=== PATIENT | female | born 1950 | race Caucasian/White ===

== ENCOUNTER → 2017-11-17 | Outpatient (CLI) | payer BC, OTHER ==
[2016-05-15 16:55] VITALS: BP 144/78
--- NOTE | 2017-11-18 08:29 | RAD ---
HISTORY: Back Pain Study: 3 views of the lumbar spine Comparison: None. Findings: Normal alignment without subluxation or listhesis. Multilevel degenerative disc disease. Vertebral b aleyda heights are normal. Sacroiliac joints are unremarkable. No evidence for acute fracture can be id entified. IMPRESSION: 1. Severe multilevel degenerative disc disease. Reported By:
--- NOTE | 2017-11-18 08:31 | RAD ---
HISTORY: Neck pain Study: 6 views of the cervical spine. Comparison: None Findings: The cervical spine demonstrate normal alignment from the craniocervical junction to the level of T1. Severe multilevel degenerative disc disease. The vertebral body heights are normal. No prevertebral soft tissue swelling can be identified. The odontoid appears intact. The lateral masses of C1 align with the body of C2. IMPRESSION: 1. Severe multilevel degenerative disc disease. Reported By:
== END | disposition home or self-care (01) | DRG 552 ==
LOC: RAD 14:29
PROVIDERS: ATTEND Nurse Practitioner Family
DX: M54.2 Cervicalgia (principal); M54.5 Low back pain; M51.36 Other intervertebral disc degeneration, lumbar region
CPT/HCPCS: 72040; 72100

== ENCOUNTER 2022-03-15 14:47 | Observation (INO) ==
--- NOTE | 2022-03-15 15:22 | DR.DIZZY ---
HPI Time seen Time Seen by Provider: 03/15/22 15:22 PCP Primary Care Physician: LEONEL Complaint Chief Complaint:: HAD EGD DONE LAST WEEK, STRETECHED ESOPHAGAS, HITAL HERNIA AND ACID REFLUX. SINCE THEN SHE HAS BEEN HAVING DIARRHEA, CONSTIPATION, NO EATING OR DRINKING. GAVE HER BLOOD PRESSURE MEDS TO START COVID-19 Coronavirus risk:travel/contact w/high risk person: No Has patient experienced Coronavirus symptoms: No Source History Provided: Patient and Family Member Mode of Arrival Mode of Arrival: Wheelchair Timing Onset of Chief Complaint: 03/12/22 PMH PMH Past Medical History: Yes Past Medical History: GERD, Headaches and Hypertension Past Surgical History: Yes Surgical History: Hysterectomy and Lithotripsy Past Surgical History Comment: EGD Family History History of Family Medical Conditions: Yes Family Medical History: Hypertension Social History Do you use any recreational Drugs:: No Travel Risk Coronavirus risk:travel/contact w/high risk person: No Has patient experienced Coronavirus symptoms: No Infectious screening In the last 2 months have you had wt loss of >10#?: NO Have you had fever, night sweats or hemotysis?: No Have you traveled outside the country in the last 6 months?: No Isolation: Standard PE Vital Signs Vitals: Temperature 98.6 F Pulse Rate 86 Respiratory Rate 20 Blood Pressure [Left Arm] 134/60 Blood Pressure 128/57 O2 Sat by Pulse Oximetry 97 ROR Labs Reviewed Result Diagrams: 03/15/22 15:42 03/15/22 15:42 Laboratory: WBC 3.9 X10^3/uL (3.6-10.0) 03/15/22 15:42 RBC 3.65 X10^6/uL (3.5-5.4) 03/15/22 15:42 Hgb 11.9 g/dL (12.0-16.0) L 03/15/22 15:42 Hct 34.5 % (36.0-47.0) L 03/15/22 15:42 MCV 94.5 fL (80.0-100.0) 03/15/22 15:42 MCH 32.5 pg (27.0-34.0) 03/15/22 15:42 MCHC 34.4 g/dL (33.0-35.0) 03/15/22 15:42 RDW 13.3 % (11.6-16.5) 03/15/22 15:42 Plt Count 346 X10^3/uL (150.0-450.0) 03/15/22 15:42 Plt Count Comment Adequate (ADEQUATE) 03/15/22 15:42 MPV 6.2 fL (7.4-11.0) L 03/15/22 15:42 Neut % (Auto) 50.2 % (42.0-75.0) 03/15/22 15:42 Lymph % (Auto) 24.4 % (21.0-51.0) 03/15/22 15:42 [place] % (Auto) 15.0 % (0.0-13.0) H 03/15/22 15:42 Eos % (Auto) 7.0 % (0.9-2.9) H 03/15/22 15:42 Baso % (Auto) 3.4 % (0.2-1.0) H 03/15/22 15:42 Neut # (Auto) 2.0 x10^3/uL (2.2-4.8) L 03/15/22 15:42 Lymph # (Auto) 1.0 X10^3/uL (1.3-2.9) L 03/15/22 15:42 [place] # (Auto) 0.6 x10^3/uL (0.3-0.8) 03/15/22 15:42 Eos # (Auto) 0.3 x10^3/uL (0.0-0.2) H 03/15/22 15:42 Baso # (Auto) 0.1 X10^3/uL (0.0-0.1) 03/15/22 15:42 Absolute Nucleated RBC 0.3 /100WBC 03/15/22 15:42 Total Counted 100 03/15/22 15:42 Neutrophils % (Manual) 56 % (39-76) 03/15/22 15:42 Lymphocytes % (Manual) 25 % (13-43) 03/15/22 15:42 Monocytes % (Manual) 10 % (4-9) H 03/15/22 15:42 Eosinophils % (Manual) 9 % (0-6) H 03/15/22 15:42 Plt Morphology Comment Normal (NORMAL) 03/15/22 15:42 RBC Morphology Normal (NORMAL) 03/15/22 15:42 Sodium 140 mmol/L (136-145) 03/15/22 15:42 Corrected Sodium TNP 03/15/22 15:42 Potassium 3.9 mmol/L (3.5-5.1) 03/15/22 15:42 Chloride 106 mmol/L (98-107) 03/15/22 15:42 Carbon Dioxide 25.6 mmol/L (21-32) 03/15/22 15:42 BUN 20 mg/dL (7-18) H 03/15/22 15:42 Creatinine 0.77 mg/dL (0.55-1.02) 03/15/22 15:42 Est GFR (MDRD) Af Amer > 60 (>60) 03/15/22 15:42 Est GFR (MDRD) Non-Af > 60 (>60) 03/15/22 15:42 Glucose 82 mg/dL (65-99) 03/15/22 15:42 Calcium 8.4 mg/dL (8.5-10.1) L 03/15/22 15:42 Corrected Calcium 9.4 mg/dL (8.5-10.1) 03/15/22 15:42 Total Bilirubin 0.20 mg/dL (0.2-1.0) 03/15/22 15:42 AST 19 Units/L (15-37) 03/15/22 15:42 ALT 20 Units/L (12-78) 03/15/22 15:42 Alkaline Phosphatase 88 Units/L (46-116) 03/15/22 15:42 Total Protein 5.7 g/dL (6.4-8.2) L 03/15/22 15:42 Albumin 2.8 g/dL (3.4-5.0) L 03/15/22 15:42 Globulin 2.9 g/dL (2.5-4.5) 03/15/22 15:42 Albumin/Globulin Ratio 1.0 Ratio (1.1-2.1) L 03/15/22 15:42 Amylase 65 Units/L (25-115) 03/15/22 15:42 Lipase 176 Units/L (73-393) 03/15/22 15:42 Opioid Opioid Risk Tool Age (Nehemiah box if 16-45): No History of Preadolescent Sexual Abuse: No Total: 0 Total Score Risk Category: Low Risk Copyright: Ashutosh FRYE predicting aberrant behaviors Discharge Plan Discharge Plan Patient Disposition: 09 ADMITTED INPATIENT Condition: Stable Orders to Discharge Patient Discharge Orders: Transfer (Routine); Ordered 03/15/22 Ordered By: KATHY BETH
[2022-03-15] MEDS ORDERED: NS 1,000 ML IV 1,000 ML ONE (15:35)
[2022-03-15] MEDS ORDERED: ZOFRAN INJ 4 MG VIAL IVP ONE (15:36)
[2022-03-15] MEDS ORDERED: PEPCID 20 MG VIAL 20 MG in NS 50 ML IV 50 ML IV ONE (15:38)
[2022-03-15 15:53] LABS: EOSINOPHILS # (AUTO) 0.3 x10^3/uL (0.0-0.2); MEAN PLATELET VOLUME 6.2 fL (7.4-11.0); MONOCYTES # (AUTO) 0.6 x10^3/uL (0.3-0.8); RED CELL DISTRIBUTION WIDTH 13.3 % (11.6-16.5); WHITE BLOOD COUNT 3.9 X10^3/uL (3.6-10.0)
[2022-03-15] MEDS ORDERED: PEPCID 20 MG VIAL ONE (15:53)
[2022-03-15] MEDS ORDERED: NS 100 ML IV 100 ML ONE (15:53)
[2022-03-15] MEDS ORDERED: ZOFRAN INJ 4 MG VIAL ONE (15:53)
[2022-03-15 15:58] LABS: BASOPHILS # (AUTO) 0.1 X10^3/uL (0.0-0.1); BASOPHILS % (AUTO) 3.4 % (0.2-1.0); HEMATOCRIT 34.5 % (36.0-47.0); HEMOGLOBIN 11.9 g/dL (12.0-16.0); LYMPHOCYTES % (AUTO) 24.4 % (21.0-51.0); MEAN CORPUSCULAR HEMOGLOBIN 32.5 pg (27.0-34.0); MEAN CORPUSCULAR HGB CONC 34.4 g/dL (33.0-35.0); MEAN CORPUSCULAR VOLUME 94.5 fL (80.0-100.0); NEUTROPHILS % (AUTO) 50.2 % (42.0-75.0); RED BLOOD COUNT 3.65 X10^6/uL (3.5-5.4)
[2022-03-15] MEDS ORDERED: NS 1,000 ML IV 1,000 ML IV SCH (16:00)
[2022-03-15 16:06] LABS: ALANINE AMINOTRANSFERASE 20 Units/L (12-78); ALBUMIN 2.8 g/dL (3.4-5.0); ALKALINE PHOSPHATASE 88 Units/L (46-116); AMYLASE 65 Units/L (25-115); ASPARTATE AMINO TRANSFERASE 19 Units/L (15-37); BLOOD UREA NITROGEN 20 mg/dL (7-18); CALCIUM 8.4 mg/dL (8.5-10.1); CARBON DIOXIDE 25.6 mmol/L (21-32); CHLORIDE 106 mmol/L (98-107); COR CA(FOR HYPOALB) 9.4 mg/dL (8.5-10.1); CREATININE 0.77 mg/dL (0.55-1.02); LIPASE 176 Units/L (73-393); SODIUM 140 mmol/L (136-145); TOTAL PROTEIN 5.7 g/dL (6.4-8.2); eGFR NON BLACK RACES > 60 (>60)
[2022-03-15 16:11] LABS: PLATELET MORPHOLOGY COMMENT NORMAL (NORMAL)
[2022-03-15] MEDS ORDERED: FLEET ENEMA ADULT ONE (16:32)
[2022-03-15] MEDS ORDERED: ZOFRAN INJ 4 MG VIAL IVP PRN (19:19)
[2022-03-15] MEDS: NS 1,000 ML IV 1,000 ML IV SCH (20:59)
[2022-03-15] MEDS: MEGACE PO SCH (21:12)
[2022-03-15 21:42] VITALS: BMI 13.8
[2022-03-15 21:57] LABS: BILIRUBIN,URINE NEGATIVE (NEGATIVE); BLOOD/HEMOGLOBIN,URINE NEGATIVE (NEGATIVE); GLUCOSE, URINE NEGATIVE (NEGATIVE); KETONES,URINE 2+ (NEGATIVE); LEUKOCYTE ESTERASE ,URINE 1+ (NEGATIVE); NITRITES,URINE NEGATIVE (NEGATIVE); PROTEIN,URINE NEGATIVE (NEGATIVE); UROBILINOGEN,URINE NORMAL (NORMAL)
[2022-03-15 22:27] LABS: APPEARANCE,URINE CLEAR (CLEAR); COLOR,URINE YELLOW (YELLOW)
[2022-03-15 22:28] LABS: BACTERIA,URINE TRACE /HPF (NEGATIVE); RBC,URINE NONE SEEN /HPF (0-3); SQUAMOUS EPITHELIAL CELL,UR FEW /HPF (NEGATIVE)
[2022-03-16 04:39] LABS: ALANINE AMINOTRANSFERASE 17 Units/L (12-78); ALBUMIN 2.5 g/dL (3.4-5.0); ALKALINE PHOSPHATASE 78 Units/L (46-116); ASPARTATE AMINO TRANSFERASE 18 Units/L (15-37); BLOOD UREA NITROGEN 16 mg/dL (7-18); CALCIUM 7.9 mg/dL (8.5-10.1); CARBON DIOXIDE 25.8 mmol/L (21-32); CHLORIDE 110 mmol/L (98-107); COR CA(FOR HYPOALB) 9.1 mg/dL (8.5-10.1); CREATININE 0.63 mg/dL (0.55-1.02); SODIUM 141 mmol/L (136-145); eGFR NON BLACK RACES > 60 (>60)
[2022-03-16 04:42] LABS: BASOPHILS # (AUTO) 0.1 X10^3/uL (0.0-0.1); BASOPHILS % (AUTO) 2.2 % (0.2-1.0); EOSINOPHILS # (AUTO) 0.2 x10^3/uL (0.0-0.2); EOSINOPHILS % (AUTO) 5.6 % (0.9-2.9); HEMATOCRIT 30.2 % (36.0-47.0); HEMOGLOBIN 10.5 g/dL (12.0-16.0); LYMPHOCYTES # (AUTO) 0.9 X10^3/uL (1.3-2.9); LYMPHOCYTES % (AUTO) 23.1 % (21.0-51.0); MEAN CORPUSCULAR HEMOGLOBIN 32.7 pg (27.0-34.0); MEAN CORPUSCULAR HGB CONC 34.8 g/dL (33.0-35.0); MEAN CORPUSCULAR VOLUME 93.9 fL (80.0-100.0); MEAN PLATELET VOLUME 6.4 fL (7.4-11.0); MONOCYTES # (AUTO) 0.5 x10^3/uL (0.3-0.8); MONOCYTES % (AUTO) 13.4 % (0.0-13.0); NEUTROPHILS # (AUTO) 2.1 x10^3/uL (2.2-4.8); NEUTROPHILS % (AUTO) 55.7 % (42.0-75.0); RED BLOOD COUNT 3.21 X10^6/uL (3.5-5.4); RED CELL DISTRIBUTION WIDTH 13.5 % (11.6-16.5); WHITE BLOOD COUNT 3.8 X10^3/uL (3.6-10.0)
[2022-03-16 05:50] LABS: BASOPHILS % (MANUAL) 1 % (0-1); PLATELET MORPHOLOGY COMMENT NORMAL (NORMAL)
[2022-03-16] MEDS: MEGACE PO SCH (08:49)
[2022-03-16] MEDS: NS 1,000 ML IV 1,000 ML IV SCH (08:50)
[2022-03-16 12:04] VITALS: BP 106/51
--- NOTE | 2022-03-16 14:53 | DR.SSS ---
SHORT STAY SUMMARY Admission Date Date of Admission: 03/15/22 Discharge Date Discharge Date: 03/16/22 Admission Diagnoses Admission Diagnoses: Weakness/ Anorexia/loss of bowel function and urinary function Discharge Diagnoses Discharge Diagnoses: 1. Weakness improved 2. Anorexia 3. Loss of bowel function and urinary function secondary to what I believe was benzodiazepine intoxication. Chief Complaint Chief Complaint: My is nonfunctioning. History of Present Illness History of Present Illness: This is a 81-year-old white female who is a patient of mine. I was called by the patient's earlier in the day he reported that she has been in bed since Tuesday. He reports that through the weekend she was defecating on herself and also urinated on herself. He reported that she seemed to be out of her mind and ate very little over the weekend. I question her about her diazepam use and her she denied using any over the weekend and the said that he had a bottle she was not able to take it. She did report taking 1 hydrocodone 7.5/325 mg for a headache she had earlier in the weekend. When I saw the patient in the emergency department she was alert and awake and responded appropriately to questions. She was sitting up in the bed and seemed somewhat agitated with her as he was reporting on how little she eats at home. Past Medical History Past Medical History: Anxiety, Depression, GERD, Headaches and Hypertension Past Surgical History Surgical History: Hysterectomy and Lithotripsy Allergies Allergies Allergy/AdvReac Type Severity Reaction Status Date / Time No Known Drug Allergies Allergy Verified 12/20/18 22:41 Medications Home Medications: No Known Drug Allergies Allergy (Verified 12/20/18 22:41) CONTINUE taking the following medications donepezil 10 mg tablet tab 03/15/22 [History] famotidine 20 mg tablet tab 03/15/22 [History] fluoxetine 40 mg capsule cap 03/15/22 [History] hydrocodone 7.5 mg-acetaminophen 325 mg tablet tab 03/15/22 [History] levocetirizine 5 mg tablet tab 03/15/22 [History] omeprazole 20 mg capsule,delayed release cap 03/15/22 [History] ondansetron 8 mg disintegrating tablet tab 03/15/22 [History] pantoprazole 40 mg tablet,delayed release tab PO 03/15/22 [History] simvastatin 10 mg tablet tab 03/15/22 [History] zolpidem 10 mg tablet tab 03/15/22 [History] New Prescriptions megestrol 40 mg tablet 40 mg PO BID #60 tabs 03/16/22 [Rx] Family History Family Medical History: Hypertension Social History Does any household member use tobacco: No Alcohol Use: None Drug Use: Prescription Drugs Review of Systems Constitutional: Weakness Eyes: No Symptoms Reported ENT: No Symptoms Reported Respiratory: No Symptoms Reported Cardiovascular: No Symptoms Reported Gastrointestinal: Nausea and Vomiting Genitourinary: No Symptoms Reported Musculoskeletal: No Symptoms Reported Skin: No Symptoms Reported Neurological: No Symptoms Reported Physical Exam Vital Signs: Last Vital Signs Temp 98.6 F 03/16/22 12:00 Pulse 79 03/16/22 12:00 Resp 18 03/16/22 12:00 BP 106/51 03/16/22 12:00 Pulse Ox 98 03/16/22 12:00 O2 Del Method Room Air 03/16/22 12:00 Oriented: Normal Eyes: Normal Ear: Normal Nose: Normal Throat: Normal Respiratory: Clear Throughout Cardiovascular: Normal : Normal Auscultation: Bowel Sounds: Normal Palpation: Normal Tenderness: Normal Skin: Normal Musculoskeletal: Normal Psychiatric: Anxiety, Depression and Agitation Mood Description: Calm Affect: Normal Speech Pattern: Clear and Appropriate Labs Labs: Laboratory Last Values WBC 3.8 X10^3/uL (3.6-10.0) 03/16/22 03:25 RBC 3.21 X10^6/uL (3.5-5.4) L 03/16/22 03:25 Hgb 10.5 g/dL (12.0-16.0) L 03/16/22 03:25 Hct 30.2 % (36.0-47.0) L 03/16/22 03:25 MCV 93.9 fL (80.0-100.0) 03/16/22 03:25 MCH 32.7 pg (27.0-34.0) 03/16/22 03:25 MCHC 34.8 g/dL (33.0-35.0) 03/16/22 03:25 RDW 13.5 % (11.6-16.5) 03/16/22 03:25 Plt Count 293 X10^3/uL (150.0-450.0) 03/16/22 03:25 Plt Count Comment Adequate (ADEQUATE) 03/16/22 03:25 MPV 6.4 fL (7.4-11.0) L 03/16/22 03:25 Neut % (Auto) 55.7 % (42.0-75.0) 03/16/22 03:25 Lymph % (Auto) 23.1 % (21.0-51.0) 03/16/22 03:25 [place] % (Auto) 13.4 % (0.0-13.0) H 03/16/22 03:25 Eos % (Auto) 5.6 % (0.9-2.9) H 03/16/22 03:25 Baso % (Auto) 2.2 % (0.2-1.0) H 03/16/22 03:25 Neut # (Auto) 2.1 x10^3/uL (2.2-4.8) L 03/16/22 03:25 Lymph # (Auto) 0.9 X10^3/uL (1.3-2.9) L 03/16/22 03:25 [place] # (Auto) 0.5 x10^3/uL (0.3-0.8) 03/16/22 03:25 Eos # (Auto) 0.2 x10^3/uL (0.0-0.2) 03/16/22 03:25 Baso # (Auto) 0.1 X10^3/uL (0.0-0.1) 03/16/22 03:25 Absolute Nucleated RBC 0.0 /100WBC 03/16/22 03:25 Total Counted 100 03/16/22 03:25 Neutrophils % (Manual) 57 % (39-76) 03/16/22 03:25 Lymphocytes % (Manual) 21 % (13-43) 03/16/22 03:25 Monocytes % (Manual) 18 % (4-9) H 03/16/22 03:25 Eosinophils % (Manual) 3 % (0-6) 03/16/22 03:25 Basophils % (Manual) 1 % (0-1) 03/16/22 03:25 Plt Morphology Comment Normal (NORMAL) 03/16/22 03:25 RBC Morphology Normal (NORMAL) 03/16/22 03:25 Sodium 141 mmol/L (136-145) 03/16/22 03:25 Corrected Sodium TNP 03/16/22 03:25 Potassium 3.7 mmol/L (3.5-5.1) 03/16/22 03:25 Chloride 110 mmol/L (98-107) H 03/16/22 03:25 Carbon Dioxide 25.8 mmol/L (21-32) 03/16/22 03:25 BUN 16 mg/dL (7-18) 03/16/22 03:25 Creatinine 0.63 mg/dL (0.55-1.02) 03/16/22 03:25 Est GFR (MDRD) Af Amer > 60 (>60) 03/16/22 03:25 Est GFR (MDRD) Non-Af > 60 (>60) 03/16/22 03:25 Glucose 84 mg/dL (65-99) 03/16/22 03:25 Calcium 7.9 mg/dL (8.5-10.1) L 03/16/22 03:25 Corrected Calcium 9.1 mg/dL (8.5-10.1) 03/16/22 03:25 Total Bilirubin 0.20 mg/dL (0.2-1.0) 03/16/22 03:25 AST 18 Units/L (15-37) 03/16/22 03:25 ALT 17 Units/L (12-78) 03/16/22 03:25 Alkaline Phosphatase 78 Units/L (46-116) 03/16/22 03:25 Total Protein 5.0 g/dL (6.4-8.2) L 03/16/22 03:25 Albumin 2.5 g/dL (3.4-5.0) L 03/16/22 03:25 Globulin 2.5 g/dL (2.5-4.5) 03/16/22 03:25 Albumin/Globulin Ratio 1.0 Ratio (1.1-2.1) L 03/16/22 03:25 Amylase 65 Units/L (25-115) 03/15/22 15:42 Lipase 176 Units/L (73-393) 03/15/22 15:42 Specimen Type Clean catch urine 03/15/22 21:48 Urine Color Yellow (YELLOW) 03/15/22 21:48 Urine Appearance Clear (CLEAR) 03/15/22 21:48 Urine pH 6.0 (5.0 - 8.0) 03/15/22 21:48 Ur Specific [place] 1.015 (1.000-1.030) 03/15/22 21:48 Urine Protein Negative (NEGATIVE) 03/15/22 21:48 Urine Glucose (UA) Negative (NEGATIVE) 03/15/22 21:48 Urine Ketones 2+ (NEGATIVE) 03/15/22 21:48 Urine Blood Negative (NEGATIVE) 03/15/22 21:48 Urine Nitrite Negative (NEGATIVE) 03/15/22 21:48 Urine Bilirubin Negative (NEGATIVE) 03/15/22 21:48 Urine Urobilinogen Normal (NORMAL) 03/15/22 21:48 Ur Leukocyte Esterase 1+ (NEGATIVE) 03/15/22 21:48 Urine RBC None seen /HPF (0-3) 03/15/22 21:48 Urine WBC 3-5 /HPF (0-5) 03/15/22 21:48 Ur Squamous Epith Cells Few /HPF (NEGATIVE) 03/15/22 21:48 Urine Bacteria Trace /HPF (NEGATIVE) 03/15/22 21:48 Ur Culture Indicated? No/not indicated 03/15/22 21:48 Urine Opiates Screen Negative (NEG=<300) 03/15/22 21:48 Urine Methadone Screen Negative (NEG=<300) 03/15/22 21:48 Ur Barbiturates Screen Negative (NEG=<200) 03/15/22 21:48 Ur Phencyclidine Scrn Negative (NEG=<25) 03/15/22 21:48 Ur Amphetamines Screen Negative (NEG=<1000) 03/15/22 21:48 U Benzodiazepines Scrn Positive (NEG=<200) A 03/15/22 21:48 Urine Cocaine Screen Negative (NEG=<300) 03/15/22 21:48 U Marijuana (THC) Screen Negative (NEG=<50) 03/15/22 21:48 Assessment/Plan (1) Benzodiazepine intoxication: 1: I told the patient following day after admission and she did test positive for benzodiazepines. I think that the reason she was in the bed all weekend and was because she took too much of her benzodiazepine diazepam. I told her that we I will stop that and for her not to take it anymore. (2) Anorexia: 1: I will keep the patient on the Megace was started on twice daily. (3) Gastroesophageal reflux disease: 1: Patient is to continue pantoprazole. (4) Nausea: 1: Patient can continue ondansetron as needed nausea Hospital Course Hospital Course: Following admission the patient was taken upstairs after visit with her in emergency department and examined her. The following morning she did well she was resting comfortably. I told her we keep her some through the day and see how she was eating. The nurse, it mid afternoon reported that she has been eating some throughout the day and is tolerating food well and seems to be responding to the Megace already. She is ready to go home this afternoon so we will go ahead and discharge her home. Discharge Medications Discharge Medications: Home Medication List donepezil 10 mg tablet tab 03/15/22 [History] famotidine 20 mg tablet tab 03/15/22 [History] fluoxetine 40 mg capsule cap 03/15/22 [History] hydrocodone 7.5 mg-acetaminophen 325 mg tablet tab 03/15/22 [History] levocetirizine 5 mg tablet tab 03/15/22 [History] omeprazole 20 mg capsule,delayed release cap 03/15/22 [History] ondansetron 8 mg disintegrating tablet tab 03/15/22 [History] pantoprazole 40 mg tablet,delayed release tab PO 03/15/22 [History] simvastatin 10 mg tablet tab 03/15/22 [History] zolpidem 10 mg tablet tab 03/15/22 [History] megestrol 40 mg tablet 40 mg PO BID #60 tabs 03/16/22 [Rx] Prescriptions: ROLDAN Randolph Discharge Disposition Discharge Disposition: Patient is discharged home in stable condition I will have her follow-up with me for hospital follow-up in outpatient office in 7 to 10 days. Discharge Plan Discharge Plan Patient Disposition: HOME, SELF-CARE Condition: Stable Health Concerns: Post Hospitalization: new medications and changes needed to prevent readmission or further decline. Pt educated and given instructions on all concerns. Care Plan Goals: Problem: Fluid Volume Deficit Goal: Maintain/Improved Adequate hydration. Instructions: Follow provided instructions. Follow up with primary physician as directed. Contact primary care physician or report to the closest Emergency Room if condition worsens. Plan of Treatment: Continue with present treatment and follow up plan. Pt is to keep follow up appointment as instructed and take medications as ordered. Prescriptions: New megestrol 40 mg Tablet 40 mg PO BID Qty: 60 0RF Continued fluoxetine 40 mg capsule donepezil 10 mg tablet simvastatin 10 mg tablet ondansetron 8 mg tablet,disintegrating famotidine 20 mg tablet hydrocodone-acetaminophen 7.5-325 mg tablet pantoprazole 40 mg tablet,delayed release (DR/EC) PO omeprazole 20 mg capsule,delayed release(DR/EC) zolpidem 10 mg tablet levocetirizine 5 mg tablet Orders to Discharge Patient Discharge Orders: Discharge (Routine); Ordered 03/16/22 Ordered By: ROLDAN CASTANEDA Follow ups/Referrals Follow ups/Referrals: ROLDAN CASTANEDA [Primary Care Provider] - 03/23/22 10:30 am Instructions Instructions: Food Choices for Gastroesophageal Reflux Disease, Adult, [id number], Nausea and Vomiting, Adult, [id number], Abdominal Pain, Adult, [id number], Hypertension, Adult, [id number], Dehydration, Elderly, Gastroesophageal Reflux Disease, Adult, [id number]-[id number], Weakness, Rehydration, Elderly Stand Alone Forms: Precautions for [facility], [place] [facility], Patient Portal, Social Distancing Patient Education Addl Reference Links: Nausea and Vomiting, Adult [email or web address] n=Female&[email or web address]=a&performer= PROV&[email or web address]=en&mainSearchCriteria.v.d n=Nausea&[email or web address]
== END 2022-03-16 15:15 | disposition home or self-care (01) ==
LOC: ER 14:47 → MED/SURG 14:47
PROVIDERS: ADMIT Family Medicine; ATTEND Family Medicine
DX: K21.9 Gastro-esophageal reflux disease without esophagitis; F13.129 Sedative, hypnotic or anxiolytic abuse with intoxication, unspecified; R11.2 Nausea with vomiting, unspecified; R63.0 Anorexia; R53.1 Weakness; E86.0 Dehydration; R10.84 Generalized abdominal pain; R42 Dizziness and giddiness

== ENCOUNTER 2022-03-29 06:27 | Observation (INO) ==
--- NOTE | 2022-03-29 06:40 | DR.AMS ---
HPI <BRYANT CROFT Last Filed: 03/29/22 08:10> Time Seen Time Seen by Provider: 03/29/22 06:38 HPI Comment HPI Comment: A 71 y/o female brought to the ED as her family had called EMS stating "she has been going in and out of consciousness. She weight loss, decrease appetite." Source History Provided: Significant Other and EMS Mode of Arrival Mode of Arrival: EMS Timing Symptoms: Unchanged Associated Signs and Symptoms Associated Signs and Symptoms: None PMH <BRYANT CROFT Last Filed: 03/29/22 08:10> PMH Past Medical History: Anxiety, Depression, GERD, Headaches and Hypertension Past Surgical History: Yes Surgical History: Hysterectomy and Lithotripsy Family History Family Medical History: Hypertension Social History Do you use any recreational Drugs:: No ROS <BRYANT RIAVS Last Filed: 03/29/22 08:10> Review of Systems Constitutional: Loss of Appetite and Other (weight loss) Eyes: No Symptoms Reported ENTM: No Symptoms Reported Respiratoy: No Symptoms Reported Cardiovascular: No Symptoms Reported Gastrointestinal/Abdominal: Other (anorexia) Genitourinary: No Symptoms Reported Neurological: No Symptoms Reported Musculoskeletal: No Symptoms Reported Integumentary: No Symptoms Reported Hematologic/Lymphatic: No Symptoms Reported Endocrine: No Symptoms Reported Psychiatric: No Symptoms Reported All Other Systems: Reviewed and Negative PE <BRYANT RIVAS Last Filed: 03/29/22 08:10> Vitals Vital Signs: Temp Pulse Resp BP BP Pulse Ox O2 Del Method 03/29/22 06:28 98.2 F 93 H 18 131/60 97 Room Air 03/16/22 12:00 106/51 General Limitations: Language Barrier General Appearance: Alert, In No Apparent Distress and Cachectic Head Head Exam: Normal Inspection, Atraumatic and Normocephalic Eyes Eye exam: Normal Appearance and EOMI ENT ENT Exam: Normal Exam, Normal Oropharynx, Normal External Ear Exam and Mucous Membranes Dry Neck Neck Exam: Normal Inspection, Full ROM and Trachea Midline Chest Chest Inspection: Normal Inspection and Symmetric Chest Wall Rise Respiratory Respiratory Exam: Normal Lung Sounds Bilat Cardiovascular Cardiovascular Exam: Regular Rate, Normal Rhythm, Normal Heart Sounds, +S1 and +S2 Abdominal Exam Abdominal Exam: Normal Inspection, Normal Bowel Sounds and Soft Extremities Extremities Exam: Other (She has a plastic brace on her Lt. shoulder) Back Back Exam: Normal Inspection and Full ROM Neurological Neurological Exam: Alert Patient Oriented To: Person and Place; negative Time Speech: Fluid Speech Psychological Psychiatric Exam: Normal Affect and Normal Mood Skin Skin Exam: Dry, Intact and Normal Color <KATHY BETH - Last Filed: 03/29/22 09:43> Vitals Vital Signs: Temp Pulse Resp BP BP Pulse Ox O2 Del Method 03/29/22 06:28 98.2 F 93 H 18 131/60 97 Room Air 03/16/22 12:00 106/51 COURSE <BRYANT CROFT - Last Filed: 03/29/22 08:10> Treatment Treatment: Her care was endorsed over to incoming provider. Consultation Consultation Comments: Name: [facility]#: [id number]: [id number]: 1950Sex: FLoca tion: EROrder Number(s): [id number](s):CHEST, 1 VIEW Ordering Physician: BRYANT CROFT Primary Care: Talha Castaneda Service Date: 03/29/22 Service Time: 0640 HISTORY Weight loss AMS STUDY Portable AP chest COMPARISON None FINDINGS Heart size normal with clear lungs. There is no consolidation, pulmonary edema, pleural fluid or hilar enlargement. Fracture of the proximal left humerus again noted. IMPRESSION No acute chest findings. Electronically signed by: CHUCKY MCCABE (Mar 29, 2022 07:08:55) Report Electronically signed: 03/29/22 0710 CC: Bryant Croft <KATHY BETH - Last Filed: 03/29/22 09:43> Treatment Treatment: Her care was endorsed over to incoming provider. ROR <BRYANT CROFT - Last Filed: 03/29/22 08:10> Labs Reviewed Result Diagrams: 03/29/22 07:00 03/29/22 07:00 Laboratory: WBC 3.7 X10^3/uL (3.6-10.0) 03/29/22 07:00 RBC 3.66 X10^6/uL (3.5-5.4) 03/29/22 07:00 Hgb 11.8 g/dL (12.0-16.0) L 03/29/22 07:00 Hct 34.4 % (36.0-47.0) L 03/29/22 07:00 MCV 94.1 fL (80.0-100.0) 03/29/22 07:00 MCH 32.3 pg (27.0-34.0) 03/29/22 07:00 MCHC 34.3 g/dL (33.0-35.0) 03/29/22 07:00 RDW 14.1 % (11.6-16.5) 03/29/22 07:00 Plt Count 259 X10^3/uL (150.0-450.0) 03/29/22 07:00 MPV 6.2 fL (7.4-11.0) L 03/29/22 07:00 Neut % (Auto) 57.0 % (42.0-75.0) 03/29/22 07:00 Lymph % (Auto) 22.3 % (21.0-51.0) 03/29/22 07:00 Wirt % (Auto) 13.9 % (0.0-13.0) H 03/29/22 07:00 Eos % (Auto) 5.4 % (0.9-2.9) H 03/29/22 07:00 Baso % (Auto) 1.4 % (0.2-1.0) H 03/29/22 07:00 Neut # (Auto) 2.1 x10^3/uL (2.2-4.8) L 03/29/22 07:00 Lymph # (Auto) 0.8 X10^3/uL (1.3-2.9) L 03/29/22 07:00 [place] # (Auto) 0.5 x10^3/uL (0.3-0.8) 03/29/22 07:00 Eos # (Auto) 0.2 x10^3/uL (0.0-0.2) 03/29/22 07:00 Baso # (Auto) 0.1 X10^3/uL (0.0-0.1) 03/29/22 07:00 Absolute Nucleated RBC 0.1 /100WBC 03/29/22 07:00 Sodium 140 mmol/L (136-145) 03/29/22 07:00 Corrected Sodium TNP 03/29/22 07:00 Potassium 3.8 mmol/L (3.5-5.1) 03/29/22 07:00 Chloride 106 mmol/L (98-107) 03/29/22 07:00 Carbon Dioxide 27.1 mmol/L (21-32) 03/29/22 07:00 BUN 8 mg/dL (7-18) 03/29/22 07:00 Creatinine 0.71 mg/dL (0.55-1.02) 03/29/22 07:00 Est GFR (MDRD) Af Amer > 60 (>60) 03/29/22 07:00 Est GFR (MDRD) Non-Af > 60 (>60) 03/29/22 07:00 Glucose 70 mg/dL (65-99) 03/29/22 07:00 Calcium 8.4 mg/dL (8.5-10.1) L 03/29/22 07:00 Corrected Calcium 9.0 mg/dL (8.5-10.1) 03/29/22 07:00 Total Bilirubin 0.30 mg/dL (0.2-1.0) 03/29/22 07:00 AST 17 Units/L (15-37) 03/29/22 07:00 ALT 18 Units/L (12-78) 03/29/22 07:00 Alkaline Phosphatase 94 Units/L (46-116) 03/29/22 07:00 Total Protein 6.1 g/dL (6.4-8.2) L 03/29/22 07:00 Albumin 3.3 g/dL (3.4-5.0) L 03/29/22 07:00 Globulin 2.8 g/dL (2.5-4.5) 03/29/22 07:00 Albumin/Globulin Ratio 1.2 Ratio (1.1-2.1) 03/29/22 07:00 Specimen Type Clean catch urine 03/29/22 07:30 Urine Color Yellow (YELLOW) 03/29/22 07:30 Urine Appearance Slightly hazy (CLEAR) 03/29/22 07:30 Urine pH 6.5 (5.0 - 8.0) 03/29/22 07:30 Ur Specific [place] 1.015 (1.000-1.030) 03/29/22 07:30 Urine Protein Negative (NEGATIVE) 03/29/22 07:30 Urine Glucose (UA) Negative (NEGATIVE) 03/29/22 07:30 Urine Ketones 3+ (NEGATIVE) 03/29/22 07:30 Urine Blood 1+ (NEGATIVE) 03/29/22 07:30 Urine Nitrite Negative (NEGATIVE) 03/29/22 07:30 Urine Bilirubin Negative (NEGATIVE) 03/29/22 07:30 Urine Urobilinogen 1+ (NORMAL) 03/29/22 07:30 Ur Leukocyte Esterase 1+ (NEGATIVE) 03/29/22 07:30 Urine RBC 0-2 /HPF (0-3) 03/29/22 07:30 Urine WBC 0-2 /HPF (0-5) 03/29/22 07:30 Ur Squamous Epith Cells Few /HPF (NEGATIVE) 03/29/22 07:30 Urine Bacteria Trace /HPF (NEGATIVE) 03/29/22 07:30 Ur Culture Indicated? No/not indicated 03/29/22 07:30 Urine Opiates Screen Positive (NEG=<300) A 03/29/22 07:30 Urine Methadone Screen Negative (NEG=<300) 03/29/22 07:30 Ur Barbiturates Screen Positive (NEG=<200) A 03/29/22 07:30 Ur Phencyclidine Scrn Negative (NEG=<25) 03/29/22 07:30 Ur Amphetamines Screen Negative (NEG=<1000) 03/29/22 07:30 U Benzodiazepines Scrn Positive (NEG=<200) A 03/29/22 07:30 Urine Cocaine Screen Negative (NEG=<300) 03/29/22 07:30 U Marijuana (THC) Screen Negative (NEG=<50) 03/29/22 07:30 <KATHY BETH - Last Filed: 03/29/22 09:43> Labs Reviewed Laboratory Results Reviewed?: Yes Laboratory: WBC 3.7 X10^3/uL (3.6-10.0) 03/29/22 07:00 RBC 3.66 X10^6/uL (3.5-5.4) 03/29/22 07:00 Hgb 11.8 g/dL (12.0-16.0) L 03/29/22 07:00 Hct 34.4 % (36.0-47.0) L 03/29/22 07:00 MCV 94.1 fL (80.0-100.0) 03/29/22 07:00 MCH 32.3 pg (27.0-34.0) 03/29/22 07:00 MCHC 34.3 g/dL (33.0-35.0) 03/29/22 07:00 RDW 14.1 % (11.6-16.5) 03/29/22 07:00 Plt Count 259 X10^3/uL (150.0-450.0) 03/29/22 07:00 MPV 6.2 fL (7.4-11.0) L 03/29/22 07:00 Neut % (Auto) 57.0 % (42.0-75.0) 03/29/22 07:00 Lymph % (Auto) 22.3 % (21.0-51.0) 03/29/22 07:00 Wirt % (Auto) 13.9 % (0.0-13.0) H 03/29/22 07:00 Eos % (Auto) 5.4 % (0.9-2.9) H 03/29/22 07:00 Baso % (Auto) 1.4 % (0.2-1.0) H 03/29/22 07:00 Neut # (Auto) 2.1 x10^3/uL (2.2-4.8) L 03/29/22 07:00 Lymph # (Auto) 0.8 X10^3/uL (1.3-2.9) L 03/29/22 07:00 Wirt # (Auto) 0.5 x10^3/uL (0.3-0.8) 03/29/22 07:00 Eos # (Auto) 0.2 x10^3/uL (0.0-0.2) 03/29/22 07:00 Baso # (Auto) 0.1 X10^3/uL (0.0-0.1) 03/29/22 07:00 Absolute Nucleated RBC 0.1 /100WBC 03/29/22 07:00 Sodium 140 mmol/L (136-145) 03/29/22 07:00 Corrected Sodium TNP 03/29/22 07:00 Potassium 3.8 mmol/L (3.5-5.1) 03/29/22 07:00 Chloride 106 mmol/L (98-107) 03/29/22 07:00 Carbon Dioxide 27.1 mmol/L (21-32) 03/29/22 07:00 BUN 8 mg/dL (7-18) 03/29/22 07:00 Creatinine 0.71 mg/dL (0.55-1.02) 03/29/22 07:00 Est GFR (MDRD) Af Amer > 60 (>60) 03/29/22 07:00 Est GFR (MDRD) Non-Af > 60 (>60) 03/29/22 07:00 Glucose 70 mg/dL (65-99) 03/29/22 07:00 Calcium 8.4 mg/dL (8.5-10.1) L 03/29/22 07:00 Corrected Calcium 9.0 mg/dL (8.5-10.1) 03/29/22 07:00 Total Bilirubin 0.30 mg/dL (0.2-1.0) 03/29/22 07:00 AST 17 Units/L (15-37) 03/29/22 07:00 ALT 18 Units/L (12-78) 03/29/22 07:00 Alkaline Phosphatase 94 Units/L (46-116) 03/29/22 07:00 Total Protein 6.1 g/dL (6.4-8.2) L 03/29/22 07:00 Albumin 3.3 g/dL (3.4-5.0) L 03/29/22 07:00 Globulin 2.8 g/dL (2.5-4.5) 03/29/22 07:00 Albumin/Globulin Ratio 1.2 Ratio (1.1-2.1) 03/29/22 07:00 Specimen Type Clean catch urine 03/29/22 07:30 Urine Color Yellow (YELLOW) 03/29/22 07:30 Urine Appearance Slightly hazy (CLEAR) 03/29/22 07:30 Urine pH 6.5 (5.0 - 8.0) 03/29/22 07:30 Ur Specific [place] 1.015 (1.000-1.030) 03/29/22 07:30 Urine Protein Negative (NEGATIVE) 03/29/22 07:30 Urine Glucose (UA) Negative (NEGATIVE) 07/11/22 07:30 Urine Ketones 3+ (NEGATIVE) 03/29/22 07:30 Urine Blood 1+ (NEGATIVE) 03/29/22 07:30 Urine Nitrite Negative (NEGATIVE) 03/29/22 07:30 Urine Bilirubin Negative (NEGATIVE) 03/29/22 07:30 Urine Urobilinogen 1+ (NORMAL) 03/29/22 07:30 Ur Leukocyte Esterase 1+ (NEGATIVE) 03/29/22 07:30 Urine RBC 0-2 /HPF (0-3) 03/29/22 07:30 Urine WBC 0-2 /HPF (0-5) 03/29/22 07:30 Ur Squamous Epith Cells Few /HPF (NEGATIVE) 03/29/22 07:30 Urine Bacteria Trace /HPF (NEGATIVE) 03/29/22 07:30 Ur Culture Indicated? No/not indicated 03/29/22 07:30 Urine Opiates Screen Positive (NEG=<300) A 03/29/22 07:30 Urine Methadone Screen Negative (NEG=<300) 03/29/22 07:30 Ur Barbiturates Screen Positive (NEG=<200) A 03/29/22 07:30 Ur Phencyclidine Scrn Negative (NEG=<25) 03/29/22 07:30 Ur Amphetamines Screen Negative (NEG=<1000) 03/29/22 07:30 U Benzodiazepines Scrn Positive (NEG=<200) A 03/29/22 07:30 Urine Cocaine Screen Negative (NEG=<300) 03/29/22 07:30 U Marijuana (THC) Screen Negative (NEG=<50) 03/29/22 07:30 XRAY XRAY Interpreted by: Radiologist (REPORT NOTED.) Opioid <ADEWUNMI SOBOWALE - Last Filed: 03/29/22 08:10> Opioid Risk Tool Age (Nehemiah box if 16-45): No History of Preadolescent Sexual Abuse: No Total: 0 Total Score Risk Category: Low Risk Copyright: Ashutosh FREY predicting aberrant behaviors <KATHY BETH - Last Filed: 03/29/22 09:43> Opioid Risk Tool Total: 0 Total Score Risk Category: Low Risk Discharge Plan Diagnosis Discharge Problem: Altered mental status, Acute confusion, Generalized weakness, Anorexia, Weight loss Discharge Plan Patient Disposition: 09 ADMITTED INPATIENT Condition: Stable Prescriptions: No Action ergocalciferol (vitamin D2) 1,250 mcg (50,000 unit) Capsule 1,250 mcg PO QWEEK topiramate 50 mg tablet 1 tab PO BID Label Comments: [NO ORIGINAL SIG] famotidine 20 mg tablet 1 tab PO BID Label Comments: [NO ORIGINAL SIG] hydrocodone-acetaminophen 7.5-325 mg tablet 1 tab PO BID PRN omeprazole 20 mg capsule,delayed release(DR/EC) 1 cap PO BID Label Comments: [NO ORIGINAL SIG] fluoxetine 40 mg capsule 1 cap PO DAILY donepezil 10 mg tablet 1 tab PO DAILY simvastatin 10 mg tablet 1 tab PO QHS pantoprazole 40 mg tablet,delayed release (DR/EC) 1 tab PO DAILY zolpidem 10 mg tablet 1 tab PO QHS levocetirizine 5 mg tablet 1 tab PO QAM megestrol 40 mg Tablet 40 mg PO BID Qty: 60 0RF Health Concerns: Post Hospitalization: new medications and changes needed to prevent readmission or further decline. Pt educated and given instructions on all concerns. Plan of Treatment: Continue with present treatment and follow up plan. Pt is to keep follow up appointment as instructed and take medications as ordered. Orders to Discharge Patient Discharge Orders: Transfer (Routine); Ordered 03/29/22 Ordered By: KATHY BETH Follow ups/Referrals Follow ups/Referrals: TALHA CASTANEDA [Primary Care Provider] - 3 days Instructions Stand Alone Forms: Precautions for COVID19, [facility], Patient Portal, Social Distancing <KATHY BETH - Last Filed: 03/29/22 09:43> Additional Notes Additional Notes: PATIENT IS SIGN OUT TO ME BY DR. CROFT AT 08:00AM. PATIENT IS 71YR OLD FEMALE IN ER WITH INTERMITTENT CONFUSION, ANOREXIA AND PROGRESSIVE WEIGHT LOSS. SHE IS EVALUATED WITH XRAY REPORTS PENDONG. PATIENT REPORTS REVIEWED AND HER CASE DISCUSSED WITH DR. CASTANEDA, PCP FOR PATIENT. HE WILL ADMIT PATIENT FOR OBSERVATION.
--- NOTE | 2022-03-29 07:10 | RAD ---
HISTORYWeight loss AMSSTUDYPortable AP chestCOMPARISONNoneFINDINGSHeart size normal with clear lungs. There is no consolidation, pulmonary edema, pleural fluid or hilar enlargement. Fracture of the proximal left humerus again noted.IMPRESSIONNo acute chest findings.Electronically signed by: CHUCKY MCCABE (Mar 29, 2022 07:08:55)
--- NOTE | 2022-03-29 07:11 | CT ---
HISTORYDecreased responsivenessSTUDYCT head without contrastTechnique: Axial noncontrast images with coronal and sagittal reformats. Dose reduction procedures were used with mA/kv adjusted for body size.COMPARISONNo previous CT. MRI 01/1922FINDINGSThe ventricles are normal in size shape and position. There is slight decreased attenuation in the periventricular white matter suggestive of small vessel vascular disease. There are no focal areas of abnormal attenuation to suggest recent or remote CVA, hemorrhage, contusion, significant mass lesion or extra-axial fluid collection. The visualized sinuses are clear. The calvarium is intact.IMPRESSIONNo definite acute intracranial abnormality identifiedMild small vessel diseaseElectronically signed by: CLAUDIA FLOWERS (Mar 29, 2022 07:09:10)
[2022-03-29 07:17] LABS: BASOPHILS # (AUTO) 0.1 X10^3/uL (0.0-0.1); BASOPHILS % (AUTO) 1.4 % (0.2-1.0); EOSINOPHILS # (AUTO) 0.2 x10^3/uL (0.0-0.2); EOSINOPHILS % (AUTO) 5.4 % (0.9-2.9); HEMATOCRIT 34.4 % (36.0-47.0); HEMOGLOBIN 11.8 g/dL (12.0-16.0); LYMPHOCYTES # (AUTO) 0.8 X10^3/uL (1.3-2.9); LYMPHOCYTES % (AUTO) 22.3 % (21.0-51.0); MEAN CORPUSCULAR HEMOGLOBIN 32.3 pg (27.0-34.0); MEAN CORPUSCULAR HGB CONC 34.3 g/dL (33.0-35.0); MEAN CORPUSCULAR VOLUME 94.1 fL (80.0-100.0); MEAN PLATELET VOLUME 6.2 fL (7.4-11.0); MONOCYTES # (AUTO) 0.5 x10^3/uL (0.3-0.8); MONOCYTES % (AUTO) 13.9 % (0.0-13.0); NEUTROPHILS # (AUTO) 2.1 x10^3/uL (2.2-4.8); RED BLOOD COUNT 3.66 X10^6/uL (3.5-5.4); RED CELL DISTRIBUTION WIDTH 14.1 % (11.6-16.5); WHITE BLOOD COUNT 3.7 X10^3/uL (3.6-10.0)
[2022-03-29 07:24] LABS: ALANINE AMINOTRANSFERASE 18 Units/L (12-78); ALBUMIN 3.3 g/dL (3.4-5.0); ALKALINE PHOSPHATASE 94 Units/L (46-116); ASPARTATE AMINO TRANSFERASE 17 Units/L (15-37); BLOOD UREA NITROGEN 8 mg/dL (7-18); CALCIUM 8.4 mg/dL (8.5-10.1); CARBON DIOXIDE 27.1 mmol/L (21-32); CHLORIDE 106 mmol/L (98-107); CREATININE 0.71 mg/dL (0.55-1.02); SODIUM 140 mmol/L (136-145); TOTAL PROTEIN 6.1 g/dL (6.4-8.2); eGFR NON BLACK RACES > 60 (>60)
[2022-03-29 07:43] LABS: BILIRUBIN,URINE NEGATIVE (NEGATIVE); BLOOD/HEMOGLOBIN,URINE 1+ (NEGATIVE); GLUCOSE, URINE NEGATIVE (NEGATIVE); KETONES,URINE 3+ (NEGATIVE); LEUKOCYTE ESTERASE ,URINE 1+ (NEGATIVE); NITRITES,URINE NEGATIVE (NEGATIVE); PH,URINE 6.5 (5.0 - 8.0); PROTEIN,URINE NEGATIVE (NEGATIVE); UROBILINOGEN,URINE 1+ (NORMAL)
[2022-03-29 07:51] LABS: APPEARANCE,URINE SLIGHTLY HAZY (CLEAR); COLOR,URINE YELLOW (YELLOW)
[2022-03-29 07:52] LABS: BACTERIA,URINE TRACE /HPF (NEGATIVE); RBC,URINE 0-2 /HPF (0-3); SQUAMOUS EPITHELIAL CELL,UR FEW /HPF (NEGATIVE)
[2022-03-29] MEDS ORDERED: NS 1,000 ML IV 1,000 ML ONE (08:29)
[2022-03-29] MEDS: NS 1,000 ML IV 1,000 ML IV SCH (08:49)
[2022-03-29] MEDS ORDERED: ROCEPHIN 1 GRAM IV PREMIX 1 G/50 ML IV.SOLN. IV SCH (15:48)
[2022-03-29] MEDS: ROCEPHIN VIAL 1 GRAM 1 G in NS 100 ML IV 100 ML IV SCH (17:16)
[2022-03-29] MEDS: NORCO 5/325 MG TAB PO PRN (17:17)
[2022-03-29] MEDS: PriLOSEC PO SCH (20:25)
[2022-03-29] MEDS: TOPAMAX PO SCH (20:25)
[2022-03-30] MEDS: NS 1,000 ML IV 1,000 ML IV SCH ×2 (00:02→14:20)
[2022-03-30 06:29] LABS: ALANINE AMINOTRANSFERASE 10 Units/L (12-78); ASPARTATE AMINO TRANSFERASE 17 Units/L (15-37); BLOOD UREA NITROGEN 5 mg/dL (7-18); CHLORIDE 108 mmol/L (98-107); SODIUM 139 mmol/L (136-145); eGFR NON BLACK RACES > 60 (>60)
[2022-03-30 07:05] LABS: ALBUMIN 3.2 g/dL (3.4-5.0); ALKALINE PHOSPHATASE 99 Units/L (46-116); CALCIUM 8.1 mg/dL (8.5-10.1); CARBON DIOXIDE 20.7 mmol/L (21-32); CHOL/HDL RATIO 2.6 (0.0-5.0); CHOLESTEROL 191 mg/dL (0-200); COR CA(FOR HYPOALB) 8.7 mg/dL (8.5-10.1); HDL CHOLESTEROL 73 mg/dL (40-60); MAGNESIUM 2.2 mg/dL (1.7-2.9); TRIGLYCERIDES 83 mg/dL (0-150)
[2022-03-30 07:22] LABS: BASOPHILS # (AUTO) 0.1 X10^3/uL (0.0-0.1); BASOPHILS % (AUTO) 1.7 % (0.2-1.0); EOSINOPHILS # (AUTO) 0.2 x10^3/uL (0.0-0.2); EOSINOPHILS % (AUTO) 4.4 % (0.9-2.9); HEMATOCRIT 34.3 % (36.0-47.0); HEMOGLOBIN 11.9 g/dL (12.0-16.0); LYMPHOCYTES # (AUTO) 0.8 X10^3/uL (1.3-2.9); LYMPHOCYTES % (AUTO) 18.5 % (21.0-51.0); MEAN CORPUSCULAR HEMOGLOBIN 32.6 pg (27.0-34.0); MEAN CORPUSCULAR HGB CONC 34.6 g/dL (33.0-35.0); MEAN CORPUSCULAR VOLUME 94.2 fL (80.0-100.0); MEAN PLATELET VOLUME 5.8 fL (7.4-11.0); MONOCYTES # (AUTO) 0.6 x10^3/uL (0.3-0.8); MONOCYTES % (AUTO) 13.9 % (0.0-13.0); NEUTROPHILS # (AUTO) 2.5 x10^3/uL (2.2-4.8); NEUTROPHILS % (AUTO) 61.5 % (42.0-75.0); RED BLOOD COUNT 3.65 X10^6/uL (3.5-5.4); RED CELL DISTRIBUTION WIDTH 14.1 % (11.6-16.5); WHITE BLOOD COUNT 4.1 X10^3/uL (3.6-10.0)
[2022-03-30 08:51] VITALS: BMI 13.6
[2022-03-30] MEDS: NORCO 5/325 MG TAB PO PRN ×2 (08:53→19:42)
[2022-03-30] MEDS: ROCEPHIN VIAL 1 GRAM 1 G in NS 100 ML IV 100 ML IV SCH (08:53)
[2022-03-30] MEDS: TOPAMAX PO SCH ×2 (08:55→20:41)
[2022-03-30] MEDS: PriLOSEC PO SCH ×2 (08:58→20:40)
--- NOTE | 2022-03-30 16:28 | DR.H&P ---
H&P History & Physical for Day of: H&P Date: 03/29/22 Chief Complaint Chief Complaint: Altered mental status Allergies Allergies Allergy/AdvReac Type Severity Reaction Status Date / Time No Known Drug Allergies Allergy Verified 12/20/18 22:41 History of Present Illness History of Present Illness: This is a 71-year-old white female well-known to me. She presented to the emergency department this morning with complaints from her family of altered mental status. They think she is dehydrated and her concerned about the way she is holding her mouth moving her tongue while sleeping. Reports she is not responsive to them like she normally is and is concerned she may have had a stroke and concerned that she is becoming more malnourished because she refuses to eat much food anymore. Her anorexia has been going on ongoing for several months now but apparently is becoming worse. She is also taking decreased liquids by mouth as well reported by her family and they are concerned for increasing overall debilitation. Past Medical History Past Medical History: Anxiety, Depression, GERD, Headaches and Hypertension Past Surgical History Surgical History: Cholecystectomy, Hysterectomy and Lithotripsy Family History Family Medical History: Hypertension Social History Does any household member use tobacco: No Alcohol Use: None Drug Use: None Medications Home Medications: No Known Drug Allergies Allergy (Verified 12/20/18 22:41) CONTINUE taking the following medications ergocalciferol (vitamin D2) 1,250 mcg (50,000 unit) capsule 1,250 mcg PO QWEEK 03/29/22 [History] famotidine 20 mg tablet 1 tab PO BID 03/29/22 [History] hydrocodone 7.5 mg-acetaminophen 325 mg tablet 1 tab PO BID PRN 03/29/22 [His tory] omeprazole 20 mg capsule,delayed release 1 cap PO BID 03/29/22 [History] topiramate 50 mg tablet 1 tab PO BID 03/29/22 [History] Labs Result Diagrams: 03/30/22 05:10 03/30/22 05:10 Labs: Laboratory WBC 4.1 X10^3/uL (3.6-10.0) 03/30/22 05:10 RBC 3.65 X10^6/uL (3.5-5.4) 03/30/22 05:10 Hgb 11.9 g/dL (12.0-16.0) L 03/30/22 05:10 Hct 34.3 % (36.0-47.0) L 03/30/22 05:10 MCV 94.2 fL (80.0-100.0) 03/30/22 05:10 MCH 32.6 pg (27.0-34.0) 03/30/22 05:10 MCHC 34.6 g/dL (33.0-35.0) 03/30/22 05:10 RDW 14.1 % (11.6-16.5) 03/30/22 05:10 Plt Count 242 X10^3/uL (150.0-450.0) 03/30/22 05:10 MPV 5.8 fL (7.4-11.0) L 03/30/22 05:10 Neut % (Auto) 61.5 % (42.0-75.0) 03/30/22 05:10 Lymph % (Auto) 18.5 % (21.0-51.0) L 03/30/22 05:10 [place] % (Auto) 13.9 % (0.0-13.0) H 03/30/22 05:10 Eos % (Auto) 4.4 % (0.9-2.9) H 03/30/22 05:10 Baso % (Auto) 1.7 % (0.2-1.0) H 03/30/22 05:10 Neut # (Auto) 2.5 x10^3/uL (2.2-4.8) 03/30/22 05:10 Lymph # (Auto) 0.8 X10^3/uL (1.3-2.9) L 03/30/22 05:10 [place] # (Auto) 0.6 x10^3/uL (0.3-0.8) 03/30/22 05:10 Eos # (Auto) 0.2 x10^3/uL (0.0-0.2) 03/30/22 05:10 Baso # (Auto) 0.1 X10^3/uL (0.0-0.1) 03/30/22 05:10 Absolute Nucleated RBC 0.0 /100WBC 03/30/22 05:10 Sodium 139 mmol/L (136-145) 03/30/22 05:10 Corrected Sodium TNP 03/30/22 05:10 Potassium 3.6 mmol/L (3.5-5.1) 03/30/22 05:10 Chloride 108 mmol/L (98-107) H 03/30/22 05:10 Carbon Dioxide 20.7 mmol/L (21-32) L 03/30/22 05:10 BUN 5 mg/dL (7-18) L 03/30/22 05:10 Creatinine 0.50 mg/dL (0.55-1.02) L 03/30/22 05:10 Est GFR (MDRD) Af Amer > 60 (>60) 03/30/22 05:10 Est GFR (MDRD) Non-Af > 60 (>60) 03/30/22 05:10 Glucose 71 mg/dL (65-99) 03/30/22 05:10 Calcium 8.1 mg/dL (8.5-10.1) L 03/30/22 05:10 Corrected Calcium 8.7 mg/dL (8.5-10.1) 03/30/22 05:10 Magnesium 2.2 mg/dL (1.7-2.9) 03/30/22 05:10 Total Bilirubin 0.30 mg/dL (0.2-1.0) 03/30/22 05:10 AST 17 Units/L (15-37) 03/30/22 05:10 ALT 10 Units/L (12-78) L 03/30/22 05:10 Alkaline Phosphatase 99 Units/L (46-116) 03/30/22 05:10 Total Protein 6.0 g/dL (6.4-8.2) L 03/30/22 05:10 Albumin 3.2 g/dL (3.4-5.0) L 03/30/22 05:10 Globulin 2.8 g/dL (2.5-4.5) 03/30/22 05:10 Albumin/Globulin Ratio 1.1 Ratio (1.1-2.1) 03/30/22 05:10 Triglycerides 83 mg/dL (0-150) 03/30/22 05:10 Cholesterol 191 mg/dL (0-200) 03/30/22 05:10 LDL Cholesterol, Calc 101 mg/dL (0-100) H 03/30/22 05:10 HDL Cholesterol 73 mg/dL (40-60) H 03/30/22 05:10 Cholesterol/HDL Ratio 2.6 (0.0-5.0) 03/30/22 05:10 Specimen Type Clean catch urine 03/29/22 07:30 Urine Color Yellow (YELLOW) 03/29/22 07:30 Urine Appearance Slightly hazy (CLEAR) 03/29/22 07:30 Urine pH 6.5 (5.0 - 8.0) 03/29/22 07:30 Ur Specific [place] 1.015 (1.000-1.030) 03/29/22 07:30 Urine Protein Negative (NEGATIVE) 03/29/22 07:30 Urine Glucose (UA) Negative (NEGATIVE) 03/29/22 07:30 Urine Ketones 3+ (NEGATIVE) 03/29/22 07:30 Urine Blood 1+ (NEGATIVE) 03/29/22 07:30 Urine Nitrite Negative (NEGATIVE) 03/29/22 07:30 Urine Bilirubin Negative (NEGATIVE) 03/29/22 07:30 Urine Urobilinogen 1+ (NORMAL) 03/29/22 07:30 Ur Leukocyte Esterase 1+ (NEGATIVE) 03/29/22 07:30 Urine RBC 0-2 /HPF (0-3) 03/29/22 07:30 Urine WBC 0-2 /HPF (0-5) 03/29/22 07:30 Ur Squamous Epith Cells Few /HPF (NEGATIVE) 03/29/22 07:30 Urine Bacteria Trace /HPF (NEGATIVE) 03/29/22 07:30 Ur Culture Indicated? No/not indicated 03/29/22 07:30 Urine Opiates Screen Positive (NEG=<300) A 03/29/22 07:30 Urine Methadone Screen Negative (NEG=<300) 03/29/22 07:30 Ur Barbiturates Screen Positive (NEG=<200) A 03/29/22 07:30 Ur Phencyclidine Scrn Negative (NEG=<25) 03/29/22 07:30 Ur Amphetamines Screen Negative (NEG=<1000) 03/29/22 07:30 U Benzodiazepines Scrn Positive (NEG=<200) A 03/29/22 07:30 Urine Cocaine Screen Negative (NEG=<300) 03/29/22 07:30 U Marijuana (THC) Screen Negative (NEG=<50) 03/29/22 07:30 SARS-CoV-2 (PCR) Negative (NEGATIVE) 03/29/22 09:00 Review of Systems Constitutional: Weakness and Malaise Eyes: No Symptoms Reported ENT: No Symptoms Reported Respiratory: No Symptoms Reported Cardiovascular: No Symptoms Reported Gastrointestinal: No Symptoms Reported Genitourinary: No Symptoms Reported Musculoskeletal: No Symptoms Reported Skin: No Symptoms Reported Neurological: No Symptoms Reported Physical Exam Vital Signs: Temperature 98.3 F Pulse Rate [Left] 95 Pulse Rate 93 Respiratory Rate 20 Blood Pressure [Left Arm] 118/61 Blood Pressure 131/60 O2 Sat by Pulse Oximetry 97 Oriented: Not Oriented Eyes: Normal Ear: Normal Nose: Normal Throat: Normal Respiratory: Clear Throughout Cardiovascular: Normal : Normal Auscultation: Bowel Sounds: Normal Palpation: Normal Tenderness: Normal Skin: Decreased [place] Musculoskeletal: Normal Psychiatric: Normal Mood Description: Calm and Withdrawn Affect: Anxious and Quiet Speech Pattern: Unclear and Delayed Assessment/Plan (1) Altered mental status: Status: Acute Plan: Monitor for resolution. CT the brain was normal and showed no evidence of acute ischemic problems or bleeds. (2) Acute confusion: Status: Acute Plan: Monitor for resolution. It may be secondary to her being positive for opioids, barbiturates and benzodiazepines. (3) Generalized weakness: Status: Acute Plan: Increase calorie intake hopefully increase her strength. (4) Anorexia: Status: Acute Plan: Continue Megace at this time. (5) Weight loss: Status: Acute Plan: Since the patient has become so malnourished I am going to consult general surgery and have them putting a PEG tube so we can give her nutrition through that since she is not taking enough by mouth.
--- NOTE | 2022-03-30 16:31 | PCM.PROG ---
Progress Note Progress Note for Day of Date of Exam: 03/30/22 Subjective Subjective: The patient is more alert and awake this morning. She is lying in bed she comes in and out of consciousness. She has been taking little in the way of food since come to the hospital. I spoke with general surgeon Dr. Rai and reported that there is some problems with the scope and that he would not be able to do a PEG tube until Tuesday which is 3 days from now. In the meantime we will continue to give her some IV fluid and encourage her to eat to help build up her strength. I discussed temporary mcc with full-time mcc to put patient's family and they absolutely refused to put her in the mcc even for temporary rehab. Past Medical Family Social History Allergies: Allergies No Known Drug Allergies Allergy (Verified 12/20/18 22:41) Review of Systems ROS: No change since H&P Vital Signs and I&O's Vital Signs: Temperature 98.3 F Pulse Rate [Left] 95 Pulse Rate 93 Respiratory Rate 20 Blood Pressure [Left Arm] 118/61 Blood Pressure 131/60 O2 Sat by Pulse Oximetry 97 Intake and Output: Intake & Output 03/28/22 03/29/22 03/30/22 03/31/22 11:59 11:59 11:59 11:59 Intake Total 1525 / 1525 550 / 550 Output Total 1200 / 1200 Balance 325 / 325 550 / 550 Physical Exam Oriented: Normal Eyes: Normal Ear: Normal Nose: Normal Throat: Normal Respiratory: Normal Cardiovascular: Normal : Normal Auscultation: Bowel Sounds: Normal Tenderness: Normal Skin: Decreased Turgur Musculoskeletal: Normal Psychiatric: Normal Mood Description: Calm and Withdrawn Affect: Anxious and Quiet Speech Pattern: Unclear and Delayed Laboratory and Diagnostics Result Diagrams: 03/30/22 05:10 03/30/22 05:10 Labs: Laboratory WBC 4.1 X10^3/uL (3.6-10.0) 03/30/22 05:10 RBC 3.65 X10^6/uL (3.5-5.4) 03/30/22 05:10 Hgb 11.9 g/dL (12.0-16.0) L 03/30/22 05:10 Hct 34.3 % (36.0-47.0) L 03/30/22 05:10 MCV 94.2 fL (80.0-100.0) 03/30/22 05:10 MCH 32.6 pg (27.0-34.0) 03/30/22 05:10 MCHC 34.6 g/dL (33.0-35.0) 03/30/22 05:10 RDW 14.1 % (11.6-16.5) 03/30/22 05:10 Plt Count 242 X10^3/uL (150.0-450.0) 03/30/22 05:10 MPV 5.8 fL (7.4-11.0) L 03/30/22 05:10 Neut % (Auto) 61.5 % (42.0-75.0) 03/30/22 05:10 Lymph % (Auto) 18.5 % (21.0-51.0) L 03/30/22 05:10 [place] % (Auto) 13.9 % (0.0-13.0) H 03/30/22 05:10 Eos % (Auto) 4.4 % (0.9-2.9) H 03/30/22 05:10 Baso % (Auto) 1.7 % (0.2-1.0) H 03/30/22 05:10 Neut # (Auto) 2.5 x10^3/uL (2.2-4.8) 03/30/22 05:10 Lymph # (Auto) 0.8 X10^3/uL (1.3-2.9) L 03/30/22 05:10 [place] # (Auto) 0.6 x10^3/uL (0.3-0.8) 03/30/22 05:10 Eos # (Auto) 0.2 x10^3/uL (0.0-0.2) 03/30/22 05:10 Baso # (Auto) 0.1 X10^3/uL (0.0-0.1) 03/30/22 05:10 Absolute Nucleated RBC 0.0 /100WBC 03/30/22 05:10 Sodium 139 mmol/L (136-145) 03/30/22 05:10 Corrected Sodium TNP 03/30/22 05:10 Potassium 3.6 mmol/L (3.5-5.1) 03/30/22 05:10 Chloride 108 mmol/L (98-107) H 03/30/22 05:10 Carbon Dioxide 20.7 mmol/L (21-32) L 03/30/22 05:10 BUN 5 mg/dL (7-18) L 03/30/22 05:10 Creatinine 0.50 mg/dL (0.55-1.02) L 03/30/22 05:10 Est GFR (MDRD) Af Amer > 60 (>60) 03/30/22 05:10 Est GFR (MDRD) Non-Af > 60 (>60) 03/30/22 05:10 Glucose 71 mg/dL (65-99) 03/30/22 05:10 Calcium 8.1 mg/dL (8.5-10.1) L 03/30/22 05:10 Corrected Calcium 8.7 mg/dL (8.5-10.1) 03/30/22 05:10 Magnesium 2.2 mg/dL (1.7-2.9) 03/30/22 05:10 Total Bilirubin 0.30 mg/dL (0.2-1.0) 03/30/22 05:10 AST 17 Units/L (15-37) 03/30/22 05:10 ALT 10 Units/L (12-78) L 03/30/22 05:10 Alkaline Phosphatase 99 Units/L (46-116) 03/30/22 05:10 Total Protein 6.0 g/dL (6.4-8.2) L 03/30/22 05:10 Albumin 3.2 g/dL (3.4-5.0) L 03/30/22 05:10 Globulin 2.8 g/dL (2.5-4.5) 03/30/22 05:10 Albumin/Globulin Ratio 1.1 Ratio (1.1-2.1) 03/30/22 05:10 Triglycerides 83 mg/dL (0-150) 03/30/22 05:10 Cholesterol 191 mg/dL (0-200) 03/30/22 05:10 LDL Cholesterol, Calc 101 mg/dL (0-100) H 03/30/22 05:10 HDL Cholesterol 73 mg/dL (40-60) H 03/30/22 05:10 Cholesterol/HDL Ratio 2.6 (0.0-5.0) 03/30/22 05:10 Specimen Type Clean catch urine 03/29/22 07:30 Urine Color Yellow (YELLOW) 03/29/22 07:30 Urine Appearance Slightly hazy (CLEAR) 03/29/22 07:30 Urine pH 6.5 (5.0 - 8.0) 03/29/22 07:30 Ur Specific [place] 1.015 (1.000-1.030) 03/29/22 07:30 Urine Protein Negative (NEGATIVE) 03/29/22 07:30 Urine Glucose (UA) Negative (NEGATIVE) 03/29/22 07:30 Urine Ketones 3+ (NEGATIVE) 03/29/22 07:30 Urine Blood 1+ (NEGATIVE) 03/29/22 07:30 Urine Nitrite Negative (NEGATIVE) 03/29/22 07:30 Urine Bilirubin Negative (NEGATIVE) 03/29/22 07:30 Urine Urobilinogen 1+ (NORMAL) 03/29/22 07:30 Ur Leukocyte Esterase 1+ (NEGATIVE) 03/29/22 07:30 Urine RBC 0-2 /HPF (0-3) 03/29/22 07:30 Urine WBC 0-2 /HPF (0-5) 03/29/22 07:30 Ur Squamous Epith Cells Few /HPF (NEGATIVE) 03/29/22 07:30 Urine Bacteria Trace /HPF (NEGATIVE) 03/29/22 07:30 Ur Culture Indicated? No/not indicated 03/29/22 07:30 Urine Opiates Screen Positive (NEG=<300) A 03/29/22 07:30 Urine Methadone Screen Negative (NEG=<300) 03/29/22 07:30 Ur Barbiturates Screen Positive (NEG=<200) A 03/29/22 07:30 Ur Phencyclidine Scrn Negative (NEG=<25) 03/29/22 07:30 Ur Amphetamines Screen Negative (NEG=<1000) 03/29/22 07:30 U Benzodiazepines Scrn Positive (NEG=<200) A 03/29/22 07:30 Urine Cocaine Screen Negative (NEG=<300) 03/29/22 07:30 U Marijuana (THC) Screen Negative (NEG=<50) 03/29/22 07:30 SARS-CoV-2 (PCR) Negative (NEGATIVE) 03/29/22 09:00 Plan (1) Altered mental status: Status: Acute Narrative Support Text: Patient's acute mental status changes have improved since admission yesterday. Plan: Monitor for resolution. CT the brain was normal and showed no evidence of acute ischemic problems or bleeds. (2) Acute confusion: Status: Acute Narrative Support Text: Confusion had resolved since yesterday on admission. Plan: Monitor for resolution. It may be secondary to her being positive for opioids, barbiturates and benzodiazepines. (3) Generalized weakness: Status: Acute Narrative Support Text: Patient remains weak and bedbound at this time. Plan: Increase calorie intake hopefully increase her strength. (4) Anorexia: Status: Acute Narrative Support Text: Change the patient to regular diet this morning after she was made n.p.o. last n ight in anticipation for having a PEG tube placed today. Plan: Continue Megace at this time. (5) Weight loss: Status: Acute Plan: Since the patient has become so malnourished I am going to consult general surgery and have them putting a PEG tube so we can give her nutrition through that since she is not taking enough by mouth.
[2022-03-30] MEDS: MEGACE ORAL SUSP 400 MG/10 ML PO SCH (17:09)
[2022-03-31] MEDS: NS 1,000 ML IV 1,000 ML IV SCH ×2 (05:44→16:07)
[2022-03-31] MEDS: MEGACE ORAL SUSP 400 MG/10 ML PO SCH ×2 (05:44→16:13)
[2022-03-31 05:49] LABS: BASOPHILS # (AUTO) 0.1 X10^3/uL (0.0-0.1); BASOPHILS % (AUTO) 2.3 % (0.2-1.0); EOSINOPHILS # (AUTO) 0.2 x10^3/uL (0.0-0.2); EOSINOPHILS % (AUTO) 4.7 % (0.9-2.9); HEMATOCRIT 33.1 % (36.0-47.0); HEMOGLOBIN 11.5 g/dL (12.0-16.0); LYMPHOCYTES # (AUTO) 0.9 X10^3/uL (1.3-2.9); LYMPHOCYTES % (AUTO) 25.7 % (21.0-51.0); MEAN CORPUSCULAR HEMOGLOBIN 32.4 pg (27.0-34.0); MEAN CORPUSCULAR HGB CONC 34.9 g/dL (33.0-35.0); MEAN PLATELET VOLUME 6.7 fL (7.4-11.0); MONOCYTES # (AUTO) 0.6 x10^3/uL (0.3-0.8); MONOCYTES % (AUTO) 16.1 % (0.0-13.0); NEUTROPHILS # (AUTO) 1.9 x10^3/uL (2.2-4.8); NEUTROPHILS % (AUTO) 51.2 % (42.0-75.0); RED BLOOD COUNT 3.56 X10^6/uL (3.5-5.4); RED CELL DISTRIBUTION WIDTH 14.1 % (11.6-16.5); WHITE BLOOD COUNT 3.6 X10^3/uL (3.6-10.0)
[2022-03-31 06:00] LABS: ALANINE AMINOTRANSFERASE 14 Units/L (12-78); ALBUMIN 2.8 g/dL (3.4-5.0); ALKALINE PHOSPHATASE 86 Units/L (46-116); ASPARTATE AMINO TRANSFERASE 14 Units/L (15-37); BLOOD UREA NITROGEN 5 mg/dL (7-18); CHLORIDE 112 mmol/L (98-107); CREATININE 0.55 mg/dL (0.55-1.02); SODIUM 142 mmol/L (136-145); TOTAL PROTEIN 5.5 g/dL (6.4-8.2); eGFR NON BLACK RACES > 60 (>60)
[2022-03-31] MEDS ORDERED: K-RIDER 10 MEQ/NS 100 ML 10 MEQ/100 ML BAG IV PRN (06:11)
[2022-03-31] MEDS ORDERED: POTASSIUM CHL 60 MEQ/NS 0.45% 500 ML IV PRN (06:11)
[2022-03-31] MEDS ORDERED: K-DUR TAB 20 MEQ PO PRN (06:11)
[2022-03-31] MEDS ORDERED: POTASSIUM CHLORIDE LIQ 20 MEQ UDC PO PRN (06:11)
[2022-03-31] MEDS ORDERED: MICRO K EXTEN CAP 10 MEQ PO PRN (06:11)
[2022-03-31] MEDS ORDERED: POTASSIUM CHL 40 MEQ/NS 0.45% 500 ML IV PRN (06:11)
[2022-03-31] MEDS ORDERED: KLOR-CON PO PRN (06:11)
--- NOTE | 2022-03-31 08:11 | MRI ---
HISTORYALTERED MENTAL STATUSSTUDYMRI brain without IV contrastCOMPARISONCT 03/29/2022TECHNIQUEMultiplanar multi-sequence MRI of the brain was obtained without administration of IV contrast.FINDINGSThe cerebellar tonsils are normally positioned. Pituitary gland is normal in size. [Moderate diffuse volume loss in the brain with compensatory enlargement of the ventricular system.]No areas of restricted diffusion. Likely minimal chronic small vessel ischemic changes in the periventricular white matter. [No evidence of intracranial hemorrhage.]Paranasal sinuses and mastoid air cells appear clear.IMPRESSIONMinimal chronic small vessel ischemic changes are suspected without evidence of acute intracranial abnormality.Electronically signed by: Alexandr Reinoso (Mar 31, 2022 08:09:28)
[2022-03-31] MEDS: TOPAMAX PO SCH ×2 (08:37→20:47)
[2022-03-31] MEDS: PriLOSEC PO SCH ×2 (08:37→20:47)
[2022-03-31] MEDS: ROCEPHIN VIAL 1 GRAM 1 G in NS 100 ML IV 100 ML IV SCH (08:37)
--- NOTE | 2022-03-31 11:07 | PCM.PROG ---
Progress Note Progress Note for Day of Date of Exam: 03/31/22 Subjective Subjective: The patient is alert and awake this morning. The reports she has been eating very good since last night. She is eating more according to him in the last 24 hours then in the last 3 weeks. She is feeling much better she is not groggy and has a full senses of bladder this morning. I think since she is eating better and not having any problems now we can not worry about placing the PEG tube later this week. We will watch her somewhat today to make sure that her appetite is doing okay she is eating and tolerating as well and drinking Ensure tolerating that as well. If so we will discharge her home later today. I feel that the patient was intoxicated on a mixture of benzodiazepines, opioids and barbiturates when she came in and that was the problem that we are seeing and have seen in the past. The reports that she is not getting any medicine from anyone but him and she gets her medicine from prepackaged containers from her pharmacy. I will reiterate about her not taking these medications anymore like I instructed them last time. She does have a fractured left humerus from recent fall. I understand it is painful and I am in agreement for her to take that her hydrocodone as needed but will instruct her not to take any more butalbital headache pills nor any benzodiazepines for anxiety. Past Medical Family Social History Allergies: Allergies No Known Drug Allergies Allergy (Verified 12/20/18 22:41) Review of Systems ROS: No change since H&P Vital Signs and I&O's Vital Signs: Temperature 99.3 F Pulse Rate [Left] 98 Pulse Rate 93 Respiratory Rate 18 Blood Pressure [Left Arm] 108/61 Blood Pressure 131/60 O2 Sat by Pulse Oximetry 97 Intake and Output: Intake & Output 03/28/22 03/29/22 03/30/22 03/31/22 11:59 11:59 11:59 11:59 Intake Total 1525 / 1525 1750 / 1750 Output Total 1200 / 1200 1200 / 1200 Balance 325 / 325 550 / 550 Physical Exam Oriented: Normal Eyes: Normal Ear: Normal Nose: Normal Throat: Normal Respiratory: Normal Cardiovascular: Normal : Normal Auscultation: Bowel Sounds: Normal Tenderness: Normal Skin: Decreased Turgur Musculoskeletal: Normal Psychiatric: Normal Mood Description: Calm and Withdrawn Affect: Anxious and Quiet Speech Pattern: Clear Laboratory and Diagnostics Result Diagrams: 03/31/22 04:35 03/31/22 09:50 Labs: Laboratory WBC 3.6 X10^3/uL (3.6-10.0) 03/31/22 04:35 RBC 3.56 X10^6/uL (3.5-5.4) 03/31/22 04:35 Hgb 11.5 g/dL (12.0-16.0) L 03/31/22 04:35 Hct 33.1 % (36.0-47.0) L 03/31/22 04:35 MCV 93.0 fL (80.0-100.0) 03/31/22 04:35 MCH 32.4 pg (27.0-34.0) 03/31/22 04:35 MCHC 34.9 g/dL (33.0-35.0) 03/31/22 04:35 RDW 14.1 % (11.6-16.5) 03/31/22 04:35 Plt Count 265 X10^3/uL (150.0-450.0) 03/31/22 04:35 MPV 6.7 fL (7.4-11.0) L 03/31/22 04:35 Neut % (Auto) 51.2 % (42.0-75.0) 03/31/22 04:35 Lymph % (Auto) 25.7 % (21.0-51.0) 03/31/22 04:35 [place] % (Auto) 16.1 % (0.0-13.0) H 03/31/22 04:35 Eos % (Auto) 4.7 % (0.9-2.9) H 03/31/22 04:35 Baso % (Auto) 2.3 % (0.2-1.0) H 03/31/22 04:35 Neut # (Auto) 1.9 x10^3/uL (2.2-4.8) L 03/31/22 04:35 Lymph # (Auto) 0.9 X10^3/uL (1.3-2.9) L 03/31/22 04:35 [place] # (Auto) 0.6 x10^3/uL (0.3-0.8) 03/31/22 04:35 Eos # (Auto) 0.2 x10^3/uL (0.0-0.2) 03/31/22 04:35 Baso # (Auto) 0.1 X10^3/uL (0.0-0.1) 03/31/22 04:35 Absolute Nucleated RBC 0.1 /100WBC 03/31/22 04:35 Sodium 142 mmol/L (136-145) 03/31/22 04:35 Corrected Sodium TNP 03/31/22 04:35 Potassium 3.6 mmol/L (3.5-5.1) 03/31/22 09:50 Chloride 112 mmol/L (98-107) H 03/31/22 04:35 Carbon Dioxide 24.0 mmol/L (21-32) 03/31/22 04:35 BUN 5 mg/dL (7-18) L 03/31/22 04:35 Creatinine 0.55 mg/dL (0.55-1.02) 03/31/22 04:35 Est GFR (MDRD) Af Amer > 60 (>60) 03/31/22 04:35 Est GFR (MDRD) Non-Af > 60 (>60) 03/31/22 04:35 Glucose 101 mg/dL (65-99) H 03/31/22 04:35 Calcium 8.0 mg/dL (8.5-10.1) L 03/31/22 04:35 Corrected Calcium 9.0 mg/dL (8.5-10.1) 03/31/22 04:35 Magnesium 2.2 mg/dL (1.7-2.9) 03/30/22 05:10 Total Bilirubin 0.20 mg/dL (0.2-1.0) 03/31/22 04:35 AST 14 Units/L (15-37) L 03/31/22 04:35 ALT 14 Units/L (12-78) 03/31/22 04:35 Alkaline Phosphatase 86 Units/L (46-116) 03/31/22 04:35 Total Protein 5.5 g/dL (6.4-8.2) L 03/31/22 04:35 Albumin 2.8 g/dL (3.4-5.0) L 03/31/22 04:35 Globulin 2.7 g/dL (2.5-4.5) 03/31/22 04:35 Albumin/Globulin Ratio 1.0 Ratio (1.1-2.1) L 03/31/22 04:35 Triglycerides 83 mg/dL (0-150) 03/30/22 05:10 Cholesterol 191 mg/dL (0-200) 03/30/22 05:10 LDL Cholesterol, Calc 101 mg/dL (0-100) H 03/30/22 05:10 HDL Cholesterol 73 mg/dL (40-60) H 03/30/22 05:10 Cholesterol/HDL Ratio 2.6 (0.0-5.0) 03/30/22 05:10 Specimen Type Clean catch urine 03/29/22 07:30 Urine Color Yellow (YELLOW) 03/29/22 07:30 Urine Appearance Slightly hazy (CLEAR) 03/29/22 07:30 Urine pH 6.5 (5.0 - 8.0) 03/29/22 07:30 Ur Specific [place] 1.015 (1.000-1.030) 03/29/22 07:30 Urine Protein Negative (NEGATIVE) 03/29/22 07:30 Urine Glucose (UA) Negative (NEGATIVE) 03/29/22 07:30 Urine Ketones 3+ (NEGATIVE) 03/29/22 07:30 Urine Blood 1+ (NEGATIVE) 03/29/22 07:30 Urine Nitrite Negative (NEGATIVE) 03/29/22 07:30 Urine Bilirubin Negative (NEGATIVE) 03/29/22 07:30 Urine Urobilinogen 1+ (NORMAL) 03/29/22 07:30 Ur Leukocyte Esterase 1+ (NEGATIVE) 03/29/22 07:30 Urine RBC 0-2 /HPF (0-3) 03/29/22 07:30 Urine WBC 0-2 /HPF (0-5) 03/29/22 07:30 Ur Squamous Epith Cells Few /HPF (NEGATIVE) 03/29/22 07:30 Urine Bacteria Trace /HPF (NEGATIVE) 03/29/22 07:30 Ur Culture Indicated? No/not indicated 03/29/22 07:30 Urine Opiates Screen Positive (NEG=<300) A 03/29/22 07:30 Urine Methadone Screen Negative (NEG=<300) 03/29/22 07:30 Ur Barbiturates Screen Positive (NEG=<200) A 03/29/22 07:30 Ur Phencyclidine Scrn Negative (NEG=<25) 03/29/22 07:30 Ur Amphetamines Screen Negative (NEG=<1000) 03/29/22 07:30 U Benzodiazepines Scrn Positive (NEG=<200) A 03/29/22 07:30 Urine Cocaine Screen Negative (NEG=<300) 03/29/22 07:30 U Marijuana (THC) Screen Negative (NEG=<50) 03/29/22 07:30 SARS-CoV-2 (PCR) Negative (NEGATIVE) 03/29/22 09:00 Plan (1) Altered mental status: Status: Acute Narrative Support Text: Altered mental status have resolved she is back to her normal baseline. Plan: Monitor for resolution. CT the brain was normal and showed no evidence of acute ischemic problems or bleeds. (2) Acute confusion: Status: Acute Plan: Monitor for resolution. It may be secondary to her being positive for opioids, barbiturates and benzodiazepines. (3) Generalized weakness: Status: Acute Plan: Increase calorie intake hopefully increase her strength. (4) Anorexia: Status: Acute Plan: Continue Megace at this time. (5) Weight loss: Status: Acute Plan: Since the patient is eating back at a normal level we will not plan on placing a PEG tube later this week. If she continues to do well today and having no problems and taking a good amount of food we will discharge her home this afternoon.
[2022-03-31] MEDS: NORCO 5/325 MG TAB PO PRN (16:16)
[2022-04-01] MEDS: MEGACE ORAL SUSP 400 MG/10 ML PO SCH ×2 (05:41→17:31)
[2022-04-01] MEDS: NORCO 5/325 MG TAB PO PRN ×2 (05:50→21:02)
[2022-04-01] MEDS: NS 1,000 ML IV 1,000 ML IV SCH ×2 (06:16→21:01)
[2022-04-01 06:32] LABS: BASOPHILS # (AUTO) 0.1 X10^3/uL (0.0-0.1); BASOPHILS % (AUTO) 2.2 % (0.2-1.0); EOSINOPHILS # (AUTO) 0.1 x10^3/uL (0.0-0.2); HEMATOCRIT 30.6 % (36.0-47.0); HEMOGLOBIN 10.7 g/dL (12.0-16.0); LYMPHOCYTES # (AUTO) 0.9 X10^3/uL (1.3-2.9); LYMPHOCYTES % (AUTO) 26.9 % (21.0-51.0); MEAN CORPUSCULAR HEMOGLOBIN 32.7 pg (27.0-34.0); MEAN CORPUSCULAR HGB CONC 34.9 g/dL (33.0-35.0); MEAN CORPUSCULAR VOLUME 93.6 fL (80.0-100.0); MEAN PLATELET VOLUME 6.6 fL (7.4-11.0); MONOCYTES # (AUTO) 0.5 x10^3/uL (0.3-0.8); MONOCYTES % (AUTO) 15.9 % (0.0-13.0); NEUTROPHILS # (AUTO) 1.7 x10^3/uL (2.2-4.8); RED BLOOD COUNT 3.27 X10^6/uL (3.5-5.4); RED CELL DISTRIBUTION WIDTH 14.3 % (11.6-16.5); WHITE BLOOD COUNT 3.4 X10^3/uL (3.6-10.0)
[2022-04-01 06:50] LABS: ALANINE AMINOTRANSFERASE 14 Units/L (12-78); ALBUMIN 2.7 g/dL (3.4-5.0); ALKALINE PHOSPHATASE 77 Units/L (46-116); ASPARTATE AMINO TRANSFERASE 16 Units/L (15-37); BLOOD UREA NITROGEN 7 mg/dL (7-18); CALCIUM 8.2 mg/dL (8.5-10.1); CARBON DIOXIDE 21.9 mmol/L (21-32); CHLORIDE 111 mmol/L (98-107); COR CA(FOR HYPOALB) 9.2 mg/dL (8.5-10.1); CREATININE 0.43 mg/dL (0.55-1.02); SODIUM 139 mmol/L (136-145); TOTAL PROTEIN 5.2 g/dL (6.4-8.2); eGFR NON BLACK RACES > 60 (>60)
[2022-04-01] MEDS ORDERED: POTASSIUM CHL 40 MEQ/NS 0.45% 500 ML IV PRN (07:41)
[2022-04-01] MEDS ORDERED: K-RIDER 10 MEQ/NS 100 ML 10 MEQ/100 ML BAG IV PRN (07:41)
[2022-04-01] MEDS ORDERED: POTASSIUM CHLORIDE LIQ 20 MEQ UDC PO PRN (07:41)
[2022-04-01] MEDS ORDERED: KLOR-CON PO PRN (07:41)
[2022-04-01] MEDS ORDERED: K-DUR TAB 20 MEQ PO PRN (07:41)
[2022-04-01] MEDS ORDERED: MICRO K EXTEN CAP 10 MEQ PO PRN (07:41)
[2022-04-01] MEDS ORDERED: POTASSIUM CHL 60 MEQ/NS 0.45% 500 ML IV PRN (07:41)
[2022-04-01] MEDS: PriLOSEC PO SCH ×2 (09:03→21:01)
[2022-04-01] MEDS: ROCEPHIN VIAL 1 GRAM 1 G in NS 100 ML IV 100 ML IV SCH (09:04)
[2022-04-01] MEDS: TOPAMAX PO SCH ×2 (09:04→21:01)
--- NOTE | 2022-04-01 15:28 | PCM.PROG ---
Progress Note Progress Note for Day of Date of Exam: 04/01/22 Subjective Subjective: The patient is alert and awake this morning. She is sitting up in bed eating her breakfast this morning. The this morning reports that him and and the family have decided that she does need a PEG tube in case she gets when she does not want to eat again. Reportedly she did not eat as good yesterday afternoon as she had been on the previous day and night. The patient looks good this morning however she is emancipated still and malnourished. I discussed thought of mental status that she has when she comes in the hospital like this and that is secondary to mixing opioids with benzodiazepines along with barbiturates. I reiterated to the family again not to mix any more edmundo odiazepines and barbiturates with the opioid pain medicine hydrocodone. They understand and are agreement with this. I told him to remove and take away the Fioricet headache tablets and what ever benzodiazepine she has been taking and do not give to her anymore. They understand this and said they would do this. Found out later today after I saw the patient that they would not be able to do a PEG tube tomorrow morning as they do not have all the equipment back into do it yet. Arrange for patient have physical therapy today to see how she is doing and to remove the [place] cath start bladder training or in anticipation of a probable discharge home tomorrow morning. We will plan on getting her set up with Dr. Rai our general surgeon so that she can get the PEG tube placement as outpatient sometime next week maybe. Past Medical Family Social History Allergies: Allergies No Known Drug Allergies Allergy (Verified 12/20/18 22:41) Review of Systems ROS: No change since H&P Vital Signs and I&O's Vital Signs: Temperature 98.2 F Pulse Rate [Left] 102 Pulse Rate 93 Respiratory Rate 18 Blood Pressure [Right Arm] 120/56 Blood Pressure [Left Arm] 121/63 Blood Pressure 131/60 O2 Sat by Pulse Oximetry 98 Intake and Output: Intake & Output 03/30/22 03/31/22 04/01/22 04/02/22 11:59 11:59 11:59 11:59 Intake Total 1525 / 1525 1750 / 1750 2910 / 2910 Output Total 1200 / 1200 1200 / 1200 1920 / 1920 Balance 325 / 325 550 / 550 990 / 990 Physical Exam Oriented: Normal Eyes: Normal Ear: Normal Nose: Normal Throat: Normal Respiratory: Normal Cardiovascular: Normal : Normal Auscultation: Bowel Sounds: Normal Tenderness: Normal Skin: Decreased Turgur Musculoskeletal: Normal Psychiatric: Normal Mood Description: Calm and Withdrawn Affect: Anxious and Quiet Speech Pattern: Clear Laboratory and Diagnostics Result Diagrams: 04/01/22 05:33 04/01/22 05:33 Labs: Laboratory WBC 3.4 X10^3/uL (3.6-10.0) L 04/01/22 05:33 RBC 3.27 X10^6/uL (3.5-5.4) L 04/01/22 05:33 Hgb 10.7 g/dL (12.0-16.0) L 04/01/22 05:33 Hct 30.6 % (36.0-47.0) L 04/01/22 05:33 MCV 93.6 fL (80.0-100.0) 04/01/22 05:33 MCH 32.7 pg (27.0-34.0) 04/01/22 05:33 MCHC 34.9 g/dL (33.0-35.0) 04/01/22 05:33 RDW 14.3 % (11.6-16.5) 04/01/22 05:33 Plt Count 234 X10^3/uL (150.0-450.0) 04/01/22 05:33 MPV 6.6 fL (7.4-11.0) L 04/01/22 05:33 Neut % (Auto) 51.0 % (42.0-75.0) 04/01/22 05:33 Lymph % (Auto) 26.9 % (21.0-51.0) 04/01/22 05:33 [place] % (Auto) 15.9 % (0.0-13.0) H 04/01/22 05:33 Eos % (Auto) 4.0 % (0.9-2.9) H 04/01/22 05:33 Baso % (Auto) 2.2 % (0.2-1.0) H 04/01/22 05:33 Neut # (Auto) 1.7 x10^3/uL (2.2-4.8) L 04/01/22 05:33 Lymph # (Auto) 0.9 X10^3/uL (1.3-2.9) L 04/01/22 05:33 [place] # (Auto) 0.5 x10^3/uL (0.3-0.8) 04/01/22 05:33 Eos # (Auto) 0.1 x10^3/uL (0.0-0.2) 04/01/22 05:33 Baso # (Auto) 0.1 X10^3/uL (0.0-0.1) 04/01/22 05:33 Absolute Nucleated RBC 0.0 /100WBC 04/01/22 05:33 Sodium 139 mmol/L (136-145) 04/01/22 05:33 Corrected Sodium TNP 04/01/22 05:33 Potassium 3.8 mmol/L (3.5-5.1) 04/01/22 05:33 Chloride 111 mmol/L (98-107) H 04/01/22 05:33 Carbon Dioxide 21.9 mmol/L (21-32) 04/01/22 05:33 BUN 7 mg/dL (7-18) 04/01/22 05:33 Creatinine 0.43 mg/dL (0.55-1.02) L 04/01/22 05:33 Est GFR (MDRD) Af Amer > 60 (>60) 04/01/22 05:33 Est GFR (MDRD) Non-Af > 60 (>60) 04/01/22 05:33 Glucose 87 mg/dL (65-99) 04/01/22 05:33 Calcium 8.2 mg/dL (8.5-10.1) L 04/01/22 05:33 Corrected Calcium 9.2 mg/dL (8.5-10.1) 04/01/22 05:33 Magnesium 2.1 mg/dL (1.7-2.9) 04/01/22 05:33 Total Bilirubin 0.20 mg/dL (0.2-1.0) 04/01/22 05:33 AST 16 Units/L (15-37) 04/01/22 05:33 ALT 14 Units/L (12-78) 04/01/22 05:33 Alkaline Phosphatase 77 Units/L (46-116) 04/01/22 05:33 Total Protein 5.2 g/dL (6.4-8.2) L 04/01/22 05:33 Albumin 2.7 g/dL (3.4-5.0) L 04/01/22 05:33 Globulin 2.5 g/dL (2.5-4.5) 04/01/22 05:33 Albumin/Globulin Ratio 1.1 Ratio (1.1-2.1) 04/01/22 05:33 Triglycerides 83 mg/dL (0-150) 03/30/22 05:10 Cholesterol 191 mg/dL (0-200) 03/30/22 05:10 LDL Cholesterol, Calc 101 mg/dL (0-100) H 03/30/22 05:10 HDL Cholesterol 73 mg/dL (40-60) H 03/30/22 05:10 Cholesterol/HDL Ratio 2.6 (0.0-5.0) 03/30/22 05:10 Specimen Type Clean catch urine 03/29/22 07:30 Urine Color Yellow (YELLOW) 03/29/22 07:30 Urine Appearance Slightly hazy (CLEAR) 03/29/22 07:30 Urine pH 6.5 (5.0 - 8.0) 03/29/22 07:30 Ur Specific [place] 1.015 (1.000-1.030) 03/29/22 07:30 Urine Protein Negative (NEGATIVE) 03/29/22 07:30 Urine Glucose (UA) Negative (NEGATIVE) 03/29/22 07:30 Urine Ketones 3+ (NEGATIVE) 03/29/22 07:30 Urine Blood 1+ (NEGATIVE) 03/29/22 07:30 Urine Nitrite Negative (NEGATIVE) 03/29/22 07:30 Urine Bilirubin Negative (NEGATIVE) 03/29/22 07:30 Urine Urobilinogen 1+ (NORMAL) 03/29/22 07:30 Ur Leukocyte Esterase 1+ (NEGATIVE) 03/29/22 07:30 Urine RBC 0-2 /HPF (0-3) 03/29/22 07:30 Urine WBC 0-2 /HPF (0-5) 03/29/22 07:30 Ur Squamous Epith Cells Few /HPF (NEGATIVE) 03/29/22 07:30 Urine Bacteria Trace /HPF (NEGATIVE) 03/29/22 07:30 Ur Culture Indicated? No/not indicated 03/29/22 07:30 Urine Opiates Screen Positive (NEG=<300) A 03/29/22 07:30 Urine Methadone Screen Negative (NEG=<300) 03/29/22 07:30 Ur Barbiturates Screen Positive (NEG=<200) A 03/29/22 07:30 Ur Phencyclidine Scrn Negative (NEG=<25) 03/29/22 07:30 Ur Amphetamines Screen Negative (NEG=<1000) 03/29/22 07:30 U Benzodiazepines Scrn Positive (NEG=<200) A 03/29/22 07:30 Urine Cocaine Screen Negative (NEG=<300) 03/29/22 07:30 U Marijuana (THC) Screen Negative (NEG=<50) 03/29/22 07:30 SARS-CoV-2 (PCR) Negative (NEGATIVE) 03/29/22 09:00 Radiology Reviewed: Yes Plan (1) Altered mental status: Status: Acute Narrative Support Text: Altered mental status has resolved she has been back to normal yesterday and today. Plan: Monitor for resolution. CT the brain was normal and showed no evidence of acute ischemic problems or bleeds. (2) Acute confusion: Status: Acute Narrative Support Text: Acute confusion had resolved over the last 2 days. Plan: Monitor for resolution. It may be secondary to her being positive for opioids, barbiturates and benzodiazepines. (3) Generalized weakness: Status: Acute Narrative Support Text: Weakness has improved since admission she is working with physical therapy today. Plan: Increase calorie intake hopefully increase her strength. (4) Anorexia: Status: Acute Plan: Continue Megace at this time. (5) Weight loss: Status: Acute Plan: Since the patient is eating back at a normal level we will not plan on placing a PEG tube later this week. If she continues to do well today and having no problems and taking a good amount of food we will discharge her home this afternoon.
[2022-04-02] MEDS: MEGACE ORAL SUSP 400 MG/10 ML PO SCH (05:30)
[2022-04-02 05:42] LABS: BASOPHILS # (AUTO) 0.1 X10^3/uL (0.0-0.1); BASOPHILS % (AUTO) 2.2 % (0.2-1.0); EOSINOPHILS # (AUTO) 0.1 x10^3/uL (0.0-0.2); EOSINOPHILS % (AUTO) 1.9 % (0.9-2.9); HEMATOCRIT 31.9 % (36.0-47.0); LYMPHOCYTES # (AUTO) 0.9 X10^3/uL (1.3-2.9); LYMPHOCYTES % (AUTO) 20.7 % (21.0-51.0); MEAN CORPUSCULAR HEMOGLOBIN 32.3 pg (27.0-34.0); MEAN CORPUSCULAR HGB CONC 34.7 g/dL (33.0-35.0); MEAN CORPUSCULAR VOLUME 93.3 fL (80.0-100.0); MEAN PLATELET VOLUME 6.6 fL (7.4-11.0); MONOCYTES # (AUTO) 0.5 x10^3/uL (0.3-0.8); NEUTROPHILS # (AUTO) 2.6 x10^3/uL (2.2-4.8); NEUTROPHILS % (AUTO) 62.2 % (42.0-75.0); RED BLOOD COUNT 3.42 X10^6/uL (3.5-5.4); RED CELL DISTRIBUTION WIDTH 14.3 % (11.6-16.5); WHITE BLOOD COUNT 4.2 X10^3/uL (3.6-10.0)
[2022-04-02 05:52] LABS: ALANINE AMINOTRANSFERASE 12 Units/L (12-78); ALBUMIN 2.8 g/dL (3.4-5.0); ALKALINE PHOSPHATASE 81 Units/L (46-116); ASPARTATE AMINO TRANSFERASE 13 Units/L (15-37); BLOOD UREA NITROGEN 10 mg/dL (7-18); CALCIUM 8.1 mg/dL (8.5-10.1); CARBON DIOXIDE 22.7 mmol/L (21-32); CHLORIDE 111 mmol/L (98-107); COR CA(FOR HYPOALB) 9.1 mg/dL (8.5-10.1); CREATININE 0.48 mg/dL (0.55-1.02); SODIUM 141 mmol/L (136-145); TOTAL PROTEIN 5.4 g/dL (6.4-8.2); eGFR NON BLACK RACES > 60 (>60)
[2022-04-02 08:08] VITALS: BP 131/63
[2022-04-02] MEDS: TOPAMAX PO SCH (09:18)
[2022-04-02] MEDS: PriLOSEC PO SCH (09:18)
--- NOTE | 2022-04-02 13:07 | PCM.DCPLAN ---
DISCHARGE SUMMARY Admission Date Date of Admission: 03/29/22 Discharge Date Discharge Date: 04/02/22 Admission Diagnoses (1) Altered mental status: Status: Acute (2) Acute confusion: Status: Acute (3) Generalized weakness: Status: Acute (4) Anorexia: Status: Acute (5) Weight loss: Status: Acute Discharge Diagnoses Discharge Diagnosis: 1. Altered mental status 2. Abnormal urine drug screen 3. Anorexia 4. Weight loss 5. Malnutrition 6. Polypharmacy abuse 7. Generalized weakness Discharge Medications Discharge Medications: Home Medication List ergocalciferol (vitamin D2) 1,250 mcg (50,000 unit) capsule 1,250 mcg PO QWEEK 03/29/22 [History] famotidine 20 mg tablet 1 tab PO BID 03/29/22 [History] hydrocodone 7.5 mg-acetaminophen 325 mg tablet 1 tab PO BID PRN 03/29/22 [History] omeprazole 20 mg capsule,delayed release 1 cap PO BID 03/29/22 [History] topiramate 50 mg tablet 1 tab PO BID 03/29/22 [History] Prescriptions: Hospital Course Vital Signs: Temperature 98.2 F Pulse Rate [Left] 99 Pulse Rate 93 Respiratory Rate 20 Blood Pressure [Right Arm] 131/63 Blood Pressure [Left Arm] 122/58 Blood Pressure 131/60 O2 Sat by Pulse Oximetry 98 Latest Lab Results: Laboratory Last Values WBC 4.2 X10^3/uL (3.6-10.0) 04/02/22 04:20 RBC 3.42 X10^6/uL (3.5-5.4) L 04/02/22 04:20 Hgb 11.0 g/dL (12.0-16.0) L 04/02/22 04:20 Hct 31.9 % (36.0-47.0) L 04/02/22 04:20 MCV 93.3 fL (80.0-100.0) 04/02/22 04:20 MCH 32.3 pg (27.0-34.0) 04/02/22 04:20 MCHC 34.7 g/dL (33.0-35.0) 04/02/22 04:20 RDW 14.3 % (11.6-16.5) 04/02/22 04:20 Plt Count 271 X10^3/uL (150.0-450.0) 04/02/22 04:20 MPV 6.6 fL (7.4-11.0) L 04/02/22 04:20 Neut % (Auto) 62.2 % (42.0-75.0) 04/02/22 04:20 Lymph % (Auto) 20.7 % (21.0-51.0) L 04/02/22 04:20 [place] % (Auto) 13.0 % (0.0-13.0) 04/02/22 04:20 Eos % (Auto) 1.9 % (0.9-2.9) 04/02/22 04:20 Baso % (Auto) 2.2 % (0.2-1.0) H 04/02/22 04:20 Neut # (Auto) 2.6 x10^3/uL (2.2-4.8) 04/02/22 04:20 Lymph # (Auto) 0.9 X10^3/uL (1.3-2.9) L 04/02/22 04:20 [place] # (Auto) 0.5 x10^3/uL (0.3-0.8) 04/02/22 04:20 Eos # (Auto) 0.1 x10^3/uL (0.0-0.2) 04/02/22 04:20 Baso # (Auto) 0.1 X10^3/uL (0.0-0.1) 04/02/22 04:20 Absolute Nucleated RBC 0.0 /100WBC 04/02/22 04:20 Sodium 141 mmol/L (136-145) 04/02/22 04:20 Corrected Sodium TNP 04/02/22 04:20 Potassium 4.2 mmol/L (3.5-5.1) 04/02/22 04:20 Chloride 111 mmol/L (98-107) H 04/02/22 04:20 Carbon Dioxide 22.7 mmol/L (21-32) 04/02/22 04:20 BUN 10 mg/dL (7-18) 04/02/22 04:20 Creatinine 0.48 mg/dL (0.55-1.02) L 04/02/22 04:20 Est GFR (MDRD) Af Amer > 60 (>60) 04/02/22 04:20 Est GFR (MDRD) Non-Af > 60 (>60) 04/02/22 04:20 Glucose 96 mg/dL (65-99) 04/02/22 04:20 Calcium 8.1 mg/dL (8.5-10.1) L 04/02/22 04:20 Corrected Calcium 9.1 mg/dL (8.5-10.1) 04/02/22 04:20 Magnesium 2.1 mg/dL (1.7-2.9) 04/01/22 05:33 Total Bilirubin 0.20 mg/dL (0.2-1.0) 04/02/22 04:20 AST 13 Units/L (15-37) L 04/02/22 04:20 ALT 12 Units/L (12-78) 04/02/22 04:20 Alkaline Phosphatase 81 Units/L (46-116) 04/02/22 04:20 Total Protein 5.4 g/dL (6.4-8.2) L 04/02/22 04:20 Albumin 2.8 g/dL (3.4-5.0) L 04/02/22 04:20 Globulin 2.6 g/dL (2.5-4.5) 04/02/22 04:20 Albumin/Globulin Ratio 1.1 Ratio (1.1-2.1) 04/02/22 04:20 Triglycerides 83 mg/dL (0-150) 03/30/22 05:10 Cholesterol 191 mg/dL (0-200) 03/30/22 05:10 LDL Cholesterol, Calc 101 mg/dL (0-100) H 03/30/22 05:10 HDL Cholesterol 73 mg/dL (40-60) H 03/30/22 05:10 Cholesterol/HDL Ratio 2.6 (0.0-5.0) 03/30/22 05:10 Specimen Type Clean catch urine 03/29/22 07:30 Urine Color Yellow (YELLOW) 03/29/22 07:30 Urine Appearance Slightly hazy (CLEAR) 03/29/22 07:30 Urine pH 6.5 (5.0 - 8.0) 03/29/22 07:30 Ur Specific [place] 1.015 (1.000-1.030) 03/29/22 07:30 Urine Protein Negative (NEGATIVE) 03/29/22 07:30 Urine Glucose (UA) Negative (NEGATIVE) 03/29/22 07:30 Urine Ketones 3+ (NEGATIVE) 03/29/22 07:30 Urine Blood 1+ (NEGATIVE) 03/29/22 07:30 Urine Nitrite Negative (NEGATIVE) 03/29/22 07:30 Urine Bilirubin Negative (NEGATIVE) 03/29/22 07:30 Urine Urobilinogen 1+ (NORMAL) 03/29/22 07:30 Ur Leukocyte Esterase 1+ (NEGATIVE) 03/29/22 07:30 Urine RBC 0-2 /HPF (0-3) 03/29/22 07:30 Urine WBC 0-2 /HPF (0-5) 03/29/22 07:30 Ur Squamous Epith Cells Few /HPF (NEGATIVE) 03/29/22 07:30 Urine Bacteria Trace /HPF (NEGATIVE) 03/29/22 07:30 Ur Culture Indicated? No/not indicated 03/29/22 07:30 Urine Opiates Screen Positive (NEG=<300) A 03/29/22 07:30 Urine Methadone Screen Negative (NEG=<300) 03/29/22 07:30 Ur Barbiturates Screen Positive (NEG=<200) A 03/29/22 07:30 Ur Phencyclidine Scrn Negative (NEG=<25) 03/29/22 07:30 Ur Amphetamines Screen Negative (NEG=<1000) 03/29/22 07:30 U Benzodiazepines Scrn Positive (NEG=<200) A 03/29/22 07:30 Urine Cocaine Screen Negative (NEG=<300) 03/29/22 07:30 U Marijuana (THC) Screen Negative (NEG=<50) 03/29/22 07:30 SARS-CoV-2 (PCR) Negative (NEGATIVE) 03/29/22 09:00 Hospital Course: The following morning after the patient was admitted she remained somewhat groggy and less responsive that she normally is. We ordered MRI was done the following day and was normal and did not show any acute neurological problems of the brain. I am concerned that her urine drug screen showed that she was positive for opioids which is prescribed for for a broken left humerus and she was positive for bit phenobarbital which is from the headache pills she takes that contains butalbital. She is also positive for benzodiazepines and I am concerned that the combination of these tablets together are causing her to lie in bed most of the time and not eat. Following morning she was alert awake and according to the family she has been eating very well and was eating breakfast that morning. We discussed a PEG tube placement per general surgery because she is only taking small amounts of nutrition daily according to the . I think she would benefit from this so we watch her for couple more days as she continues to eat better than she had been but not eating as much as she should. She has been taking some Ensure with no problems. After the consult with general surgery we will inform because of equipment problems that the PEG tube could not be placed until 04/02/2022 but later we were formed in the middle later part of the week the equipment would not be in for the PEG tube placement. We will continue her with physical therapy and discontinue her [place] catheter yesterday on , April 01. She did well far as getting up going to the bathroom on her own and moving around. I discussed with the family on multiple days about stopping her headache tablets that contain butalbital and the benzodiazepines. They said they were taken away from and not give to any more and I think this will help to avoid any future hospitalizations for confusion regarding this. Patient is discharged home in stable condition this morning. We will be arranging hospital follow-up with me within 1 week and also arranging hospital follow-up outpatient with Dr. Mulligan for consultation with a possible PEG tube placement as outpatient once equipment comes back in. I am also going to stop the patient's donepezil as it is causing her diarrhea for her and I will also be stopping zolpidem at bedtime as this will add too much of a sedative effect on her condition.
== END 2022-04-02 09:35 | disposition home health service (06) ==
LOC: ER 06:27 → MED/SURG 06:27
PROVIDERS: ADMIT Family Medicine; ATTEND Family Medicine
DX: X58.XXXA Exposure to other specified factors, initial encounter; R63.4 Abnormal weight loss; Z91.81 History of falling; F11.10 Opioid abuse, uncomplicated; R41.0 Disorientation, unspecified; R82.5 Elevated urine levels of drugs, medicaments and biological substances; K21.9 Gastro-esophageal reflux disease without esophagitis; R13.11 Dysphagia, oral phase; I10 Essential (primary) hypertension; R63.0 Anorexia; R53.1 Weakness; Z79.899 Other long term (current) drug therapy; Z20.822 Contact with and (suspected) exposure to COVID-19; R41.82 Altered mental status, unspecified; R26.89 Other abnormalities of gait and mobility; S42.302A Unspecified fracture of shaft of humerus, left arm, initial encounter for closed fracture; F13.10 Sedative, hypnotic or anxiolytic abuse, uncomplicated; F41.8 Other specified anxiety disorders